=== PATIENT | female | born 1950 | race Caucasian/White ===

== ENCOUNTER 2019-01-14 05:05 | Day surgery (SDC) | payer MEDICARE, BC ==
[2019-01-11 13:29] LABS: BASOPHILS % (AUTO) 0.3 % (0-1); EOSINOPHILS # (AUTO) 0.1 X10'3 (0-0.9); EOSINOPHILS % (AUTO) 1.2 % (0-6); HEMATOCRIT 38.6 % (35.0-45.0); HEMOGLOBIN 12.6 g/dl (12.0-16.0); LYMPHOCYTES # (AUTO) 1.7 X10'3 (1.1-4.8); LYMPHOCYTES % (AUTO) 20.7 % (21-51); MEAN CORPUSCULAR HEMOGLOBIN 28.6 PG (27.0-31.0); MEAN CORPUSCULAR HGB CONC 32.7 g/dL (33.0-36.5); MEAN CORPUSCULAR VOLUME 87.5 FL (78-98); MEAN PLATELET VOLUME 7.9 FL (7.4-10.4); MONOCYTES # (AUTO) 0.5 X10'3 (0-0.9); NEUTROPHILS # (AUTO) 6.1 X10'3 (1.8-7.7); NEUTROPHILS % (AUTO) 71.8 % (42-75); PLATELET COUNT 289 X10'3 (140-440); RED BLOOD COUNT 4.41 X10'6 (4.20-5.60); RED CELL DISTRIBUTION WIDTH 12.4 % (11.5-14.5); WHITE BLOOD COUNT 8.4 X10'3 (4.5-11.0)
[2019-01-11 13:41] LABS: ALBUMIN 3.9 G/DL (3.4-5.0); ANION GAP 9 (8-16); BLOOD UREA NITROGEN 17 MG/DL (7-18); BUN/CREATININE RATIO 18.9 (6.6-38.0); CHLORIDE 103 MMOL/L (99-107); GLUCOSE 92 MG/DL (70-104); SODIUM 141 MMOL/L (135-145); TOTAL CARBON DIOXIDE 28.9 MMOL/L (24-32); eGFR 62 ML/MIN
[2019-01-11 13:43] LABS: INR 1.1 INR; PARTIAL THROMBOPLASTIN TIME 30 SECONDS (22-32); PROTHROMBIN TIME 10.8 SECONDS (9.0-12.0)
[~2019-01-14] VITALS: Ht 156.2 cm; Wt 74.6 kg
[2019-01-14] VITALS (11 sets, daily range): BP systolic 80–99; BP diastolic 46–66
[2019-01-14] MEDS ORDERED: FURO-150 PO (05:21)
[2019-01-14] MEDS ORDERED: SPIR25TA PO (05:21)
[2019-01-14] MEDS ORDERED: APIX5TAB3 PO (05:21)
[2019-01-14] MEDS ORDERED: VALS40TA2 PO (05:21)
[2019-01-14] MEDS ORDERED: CARV-49 PO (05:21)
[2019-01-14] MEDS ORDERED: diphenhydrAMINE 25mg capsule PO PRN (05:35)
[2019-01-14] MEDS ORDERED: normal saline 1000ml 1,000 ML IV SCH (05:35)
[2019-01-14] MEDS ORDERED: LORazepam 0.5 MG tablet PO PRN (05:35)
[2019-01-14] MEDS ORDERED: LIDOcaine 1% (10mg/ml)w/preservative injection 20ml MDV ONE (06:13)
[2019-01-14] MEDS ORDERED: iohexol 350MG/ML 100ml bottle IV ONE (06:13)
[2019-01-14] MEDS ORDERED: midazolam 2 mg/2 ml injection ONE (06:24)
[2019-01-14] MEDS ORDERED: fentaNYL/PF 50MCG/1 ML 2ML syringe ONE (06:32)
[2019-01-14] MEDS ORDERED: proCHLORperazine 10 MG/2 ml inj IV PRN (07:30)
[2019-01-14] MEDS ORDERED: OXAZEpam 15mg capsule PO PRN (07:30)
[2019-01-14] MEDS ORDERED: ondansetron/PF 4mg/2ml inj IV PRN (07:30)
[2019-01-14] MEDS ORDERED: HYDROcodone/acetaminophen 10/325mg tab PO PRN (07:30)
[2019-01-14] MEDS ORDERED: HYDROcodone/acetaminophen 5mg/325mg tablet PO PRN (07:30)
== END 2019-01-14 10:03 | disposition home or self-care (01) ==
LOC: SSTAY O 05:05
PROVIDERS: ATTEND Internal Medicine Interventional Cardiology
DX: I25.119 Atherosclerotic heart disease of native coronary artery with unspecified angina pectoris (principal); I50.9 Heart failure, unspecified; I48.91 Unspecified atrial fibrillation; I42.9 Cardiomyopathy, unspecified; I11.0 Hypertensive heart disease with heart failure; Z79.899 Other long term (current) drug therapy; Z87.891 Personal history of nicotine dependence
CPT/HCPCS: 36415; 80048; 85025; 85610; 85730; 93005; 93458; 99152; 99153; A6257; J1644; J2001; J2250; J3010; J7030; Q0163; Q9967; A4620; C1769

== ENCOUNTER 2019-08-06 10:13 | Emergency (ER) | payer MEDICARE, BC ==
[~2019-08-06] VITALS: Ht 154.9 cm; Wt 72.7 kg
[~2019-08-06 10:13] MED LIST: APIX5TAB3 PO; CARV-49 PO; FURO-150 PO; SPIR25TA PO; VALS40TA2 PO
[2019-08-06] MEDS ORDERED: ipratropium/albuterol 3ml nebule NEB ONE (10:25)
[2019-08-06] MEDS ORDERED: normal saline 1000ML IV soln IV ONE (10:25)
[2019-08-06 10:59] LABS: BASOPHILS % (AUTO) 0.1 % (0-1); EOSINOPHILS # (AUTO) 0.1 X10'3 (0-0.9); EOSINOPHILS % (AUTO) 0.4 % (0-6); HEMATOCRIT 38.7 % (35.0-45.0); HEMOGLOBIN 12.7 g/dl (12.0-16.0); LYMPHOCYTES # (AUTO) 0.7 X10'3 (1.1-4.8); MEAN CORPUSCULAR HEMOGLOBIN 28.8 PG (27.0-31.0); MEAN CORPUSCULAR HGB CONC 32.9 g/dL (33.0-36.5); MEAN CORPUSCULAR VOLUME 87.6 FL (78-98); MEAN PLATELET VOLUME 7.8 FL (7.4-10.4); MONOCYTES # (AUTO) 0.7 X10'3 (0-0.9); MONOCYTES % (AUTO) 4.7 % (2-12); NEUTROPHILS # (AUTO) 13.1 X10'3 (1.8-7.7); NEUTROPHILS % (AUTO) 89.8 % (42-75); PLATELET COUNT 251 X10'3 (140-440); RED BLOOD COUNT 4.42 X10'6 (4.20-5.60); RED CELL DISTRIBUTION WIDTH 13.2 % (11.5-14.5); WHITE BLOOD COUNT 14.6 X10'3 (4.5-11.0)
[2019-08-06 11:15] LABS: ALANINE AMINOTRANSFERASE 22 U/L (12-78); ALBUMIN 3.9 G/DL (3.4-5.0); ALKALINE PHOSPHATASE 114 IU/L (46-116); ANION GAP 7 (8-16); ASPARTATE AMINO TRANSFERASE 15 U/L (10-37); BILIRUBIN,TOTAL 0.6 MG/DL (0.1-1.0); BLOOD UREA NITROGEN 9 MG/DL (7-18); BUN/CREATININE RATIO 9.3 (6.6-38.0); CALCIUM 9.3 MG/DL (8.5-10.1); CHLORIDE 107 MMOL/L (99-107); CREATININE 0.97 MG/DL (0.40-0.90); GLUCOSE 118 MG/DL (70-104); POTASSIUM 3.6 MMOL/L (3.5-5.1); SODIUM 141 MMOL/L (135-145); TOTAL CARBON DIOXIDE 26.6 MMOL/L (24-32); TOTAL PROTEIN 7.7 G/DL (6.4-8.2); eGFR 57 ML/MIN
[2019-08-06] MEDS ORDERED: CefTRIAXone 2gm/D5W 50ml 50 ML IV ONE (11:25)
[2019-08-06] MEDS ORDERED: CEPH250T PO (11:31)
[2019-08-06] MEDS ORDERED: DOXY100C43 PO (11:31)
[2019-08-06] MEDS ORDERED: ALBU6.7H9 INH (11:31)
[2019-08-06] MEDS ORDERED: PRED20TA PO (11:31)
[2019-08-06] MEDS ORDERED: GUAI118S13 PO (11:31)
[2019-08-06 12:25] VITALS: BP 101/45
== END 2019-08-06 12:28 | disposition home or self-care (01) ==
LOC: ER 10:15 → CANBEDREQ 11:49 → ER 12:28
DX: J18.9 Pneumonia, unspecified organism (principal); R00.0 Tachycardia, unspecified; Z79.2 Long term (current) use of antibiotics; Z79.899 Other long term (current) drug therapy
CPT/HCPCS: 36415; 71045; 80053; 83605; 84145; 85025; 87040; 93005; 94640; 94760; 96365; 99284; J0696; J7030; J7040

== ENCOUNTER 2021-03-25 06:37 | Day surgery (SDC) | payer MEDICARE, BC ==
[2021-03-18 12:51] LABS: BASOPHILS % (AUTO) 0.3 % (0-1); EOSINOPHILS # (AUTO) 0.2 X10'3 (0-0.9); EOSINOPHILS % (AUTO) 2.8 % (0-6); LYMPHOCYTES # (AUTO) 1.3 X10'3 (1.1-4.8); LYMPHOCYTES % (AUTO) 18.8 % (21-51); MEAN CORPUSCULAR HEMOGLOBIN 31.1 PG (27.0-31.0); MEAN CORPUSCULAR VOLUME 91.4 FL (78-98); MEAN PLATELET VOLUME 8.3 FL (7.4-10.4); MONOCYTES # (AUTO) 0.5 X10'3 (0-0.9); MONOCYTES % (AUTO) 6.9 % (2-12); NEUTROPHILS % (AUTO) 71.2 % (42-75); PRE OP HEMATOCRIT 44.2 % (35.0-45.0); PRE OP PLATELET COUNT 226 X10'3 (140-440); RED BLOOD COUNT 4.83 X10'6 (4.20-5.60); RED CELL DISTRIBUTION WIDTH 13.2 % (11.5-14.5)
[2021-03-18 13:16] LABS: ALBUMIN 4.1 G/DL (3.4-5.0); ALKALINE PHOSPHATASE 192 IU/L (46-116); BLOOD UREA NITROGEN 25 MG/DL (7-18); BUN/CREATININE RATIO 21.6 (6.6-38.0); CALCIUM 10.1 MG/DL (8.5-10.1); CHLORIDE 101 MMOL/L (99-107); CREATININE 1.16 MG/DL (0.40-0.90); PRE OP ALT 36 U/L (30-65); PRE OP ANION GAP 10 (8-16); PRE OP AST 30 U/L (10-37); PRE OP BILIRUB, TOTAL 0.9 MG/DL (0.0-1.0); PRE OP GLUCOSE 94 MG/DL (70-104); PRE OP INR 1.2 INR; PRE OP POTASSIUM 4.1 MMOL/L (3.4-5.1); PRE OP PROTIME 11.9 SECONDS (9.0-12.0); PRE OP SODIUM 139 MMOL/L (135-145); TOTAL CARBON DIOXIDE 28.5 MMOL/L (24-32); TOTAL PROTEIN 8.3 G/DL (6.4-8.2); eGFR 46 ML/MIN
[~2021-03-25] VITALS: Ht 157.5 cm; Wt 62.1 kg
[2021-03-25] VITALS (32 sets, daily range): BP systolic 83–109; BP diastolic 47–75
[~2021-03-25 06:37] MED LIST changes: +CHOL200074 PO; +DOCUMENT DATE & TIME OF BETA-BLOCKER PO ONE; +VANCOMYCIN INJ 1000 MG in NORMAL SALINE 250ml IV.SOLN IV ONE; +VITAMIN B12 PO; +acetaminophen 325mg tablet PO ONE; +cefazolin/dext.iso 2gm/100ml IV ONE; +celeCOXIB 100mg capsule PO ONE; +famotidine 20mg tablet PO ONE; +gabapentin 300mg capsule PO ONE; +metoclopramide 5 mg/ml inj IV ONE; +oxyCODONE SR 10mg (sust. release) tab -2 tabs (20mg) PO ONE; +ringers solution, lacted 1,000 ML IV SCH; +tranexamic acid 1gm/0.7% sal. 100 ML IV ONE
[2021-03-25] MEDS ORDERED: furosemide 20MG tablet PO PRN (06:50)
[2021-03-25] MEDS ORDERED: ondansetron/PF 4mg/2ml inj IV PRN ×2 (06:55→08:25)
[2021-03-25] MEDS ORDERED: magnesium hydroxide 30ml (MOM) UD suspension PO PRN (06:55)
[2021-03-25] MEDS ORDERED: HYDROmorphone inj. 0.5 MG/0.5 ML DISP.SYRIN IV PRN (06:55)
[2021-03-25] MEDS ORDERED: acetaminophen 325mg tablet PO PRN (06:55)
[2021-03-25] MEDS ORDERED: HYDROmorphone 1 mg/ml syringe IV PRN (06:55)
[2021-03-25] MEDS ORDERED: bisacodyl 10mg suppository rectal RC PRN (06:55)
[2021-03-25] MEDS ORDERED: HYDROcodone/acetaminophen 10/325mg tab PO PRN ×2 (06:55)
[2021-03-25] MEDS ORDERED: diphenhydrAMINE 25mg capsule PO PRN ×2 (06:55)
[2021-03-25] MEDS: apixaban 5mg tablet PO SCH ×2 (08:00→21:16)
[2021-03-25] MEDS ORDERED: ceFAZolin/D5W- 1GM premix 50 ML IV SCH (08:00)
[2021-03-25] MEDS: gabapentin 300mg capsule PO SCH ×3 (08:00→21:17)
[2021-03-25] MEDS: carvedilol 6.25mg tablet PO SCH ×2 (08:00→21:00)
[2021-03-25] MEDS: losartan 25mg tablet PO SCH (08:00)
[2021-03-25] MEDS ORDERED: vancomycin/NS 1 GM ADD-VANTAGE 250 ML IV SCH ×2 (08:00→20:00)
[2021-03-25] MEDS: spironolactone 25 MG tablet PO SCH (08:00)
[2021-03-25] MEDS ORDERED: acetaminophen 1,000mg/100ml IV 100 ML IV PRN (08:25)
[2021-03-25] MEDS ORDERED: meperidine/PF 25mg/ml syringe IV PRN ×3 (08:25)
[2021-03-25] MEDS ORDERED: proCHLORperazine 10 MG/2 ml inj IV PRN ×2 (08:25→19:05)
[2021-03-25] MEDS ORDERED: ringers solution, lacted 1,000 ML IV SCH (08:25)
[2021-03-25] MEDS ORDERED: morphine 2 MG/ML inj. syringe IV PRN (08:25)
[2021-03-25] MEDS ORDERED: morphine 4 MG/ML inj SYRINge IV PRN (08:25)
[2021-03-25] MEDS ORDERED: hydrALAZINE 20mg/ml inj. IV PRN (08:25)
[2021-03-25] MEDS ORDERED: labetalol 20mg/4ml (5mg/ml) syringe IV PRN (08:25)
[2021-03-25] MEDS ORDERED: midazolam 1 mg/ML 2ml injection ONE (09:02)
[2021-03-25] MEDS ORDERED: fentaNYL/PF 50MCG/1 ML 2ML syringe ONE (09:04)
[2021-03-25] MEDS ORDERED: epiNEPHrine 1 mg/ml inj ONE (09:14)
[2021-03-25] MEDS ORDERED: ROPIVAcaine 0.5% (5mg/ml) 30ml vial ONE (09:14)
[2021-03-25] MEDS ORDERED: cloNIDine hcl/PF 100mcg/ml inj ONE (09:14)
[2021-03-25] MEDS ORDERED: propofol inj 20 ML IV ONE (09:19)
[2021-03-25] MEDS ORDERED: 0.9 % SODIUM CHLORIDE 10 ML VIAL ONE ×2 (09:19)
[2021-03-25] MEDS ORDERED: phenylephrine 10mg/ml inj. ONE ×2 (09:19→09:28)
[2021-03-25] MEDS ORDERED: ePHEDrine 50MG/ML INJ. ONE ×2 (09:19→09:37)
[2021-03-25] MEDS ORDERED: vancomycin 1,000mg inj ONE ×2 (09:27→09:28)
--- NOTE | 2021-03-25 10:00 | NUR ---
Received from OR via BED, accompanied by Anesthesiologst DR GONZALEZ and report given by Anesthesiologist. PT DROWSY, DENIES PAIN, PT W/SAB UNABLE TO MOVE BILAT LE'S. RIGHT HIP W/SALBADOR DRSG/DRAIN CDI, GREEN LIGHT ILLUMINATION, LEG BRACE PLACED ON, POWDER PACK, X-RAY OBTAINED. PT ON PHENYLEPHRINE GTT, TITRATING TO OFF TOLERATED. Addendum: 03/25/21 at 1205 by Nat Cosby RN Amended: Links added.
[2021-03-25] MEDS: phenylephrine inj 50 MG in normal saline 250ml IV soln 245 ML IV SCH ×2 (10:28→14:49)
--- NOTE | 2021-03-25 12:28 | NUR ---
Patient in room . I have received report from shaista ZELAYA and had the opportunity to ask questions and awaiting to receive patient to floor
--- NOTE | 2021-03-25 12:50 | NUR ---
Report called to receiving nurse. Transferred via BED, 1 BAG OF Belongings SENT W/PT TO ROOM 4023B, STUDENT NURSE AT BEDSIDE TO RECIEVE PT. Special Issues communicated to receiving nurse. YES. Addendum: 03/25/21 at 1317 by Nat Cosby RN Amended: Links added.
[2021-03-25] MEDS: ascorbic acid 500mg tablet PO SCH ×2 (15:15→21:16)
[2021-03-25] MEDS: multivitamins, therapeutics tablet PO SCH (15:16)
[2021-03-25] MEDS: ceFAZolin/D5W- 1GM premix 50 ML IV SCH (15:17)
[2021-03-25] MEDS: potassium cl 20mEq in 1/2 NS 1,000 ML IV SCH ×2 (15:18→18:43)
[2021-03-25] MEDS ORDERED: tranexamic acid 1gm/0.7% sal. 100 ML IV ONE (16:30)
--- NOTE | 2021-03-25 17:31 | NUR ---
patient is alittle hypotensive 90/50 but states this is her norm. Post op vitals complete. patient up to commode but unable to void, bladder scanning at this time. Knee immobolizer in place jocelyn dressing in place. dressing CDI. will continue to monitor
--- NOTE | 2021-03-25 18:56 | NUR ---
patient bladder scanned 15mls observed. patient encouraged to drink more fluid. . Report given to Janis ZELAYA
--- NOTE | 2021-03-25 19:07 | NUR ---
notified dr. Beltran of pt emesis. order for compazine obtained. notified unable to void. order received for hurt if residual over 600.
[2021-03-25] MEDS ORDERED: sennosides 8.6mg tablet PO SCH (21:00)
--- NOTE | 2021-03-25 22:00 | NUR ---
up to BSC to void. noted 75ml. scanned bladder - 20ml left. not distended. will continue to monitor.
[2021-03-26] VITALS (7 sets, daily range): BP systolic 76–104; BP diastolic 50–72
--- NOTE | 2021-03-26 00:36 | NUR ---
noted pt continues to have borderline low BP. held coreg since pt receiving anti-emetics and narcotics.
[2021-03-26] MEDS: ceFAZolin/D5W- 1GM premix 50 ML IV SCH (00:47)
[2021-03-26] MEDS: potassium cl 20mEq in 1/2 NS 1,000 ML IV SCH ×2 (00:48→06:55)
--- NOTE | 2021-03-26 06:10 | NUR ---
Patient in room ORTHO 4023. I have received report from NATHALIE Bruce and had the opportunity to ask questions and assume patient care.
--- NOTE | 2021-03-26 06:23 | NUR ---
reported to days. told Dr. Beltran about decreased BP. ok to work with PT. day Rn will monitor bp after norco and PT.
[2021-03-26] MEDS: carvedilol 6.25mg tablet PO SCH ×2 (08:00→09:43)
[2021-03-26] MEDS: spironolactone 25 MG tablet PO SCH ×2 (08:00→09:43)
[2021-03-26] MEDS: losartan 25mg tablet PO SCH ×2 (08:00→09:44)
[2021-03-26 08:21] LABS: BASOPHILS % (AUTO) 0.2 % (0-1); EOSINOPHILS % (AUTO) 0.6 % (0-6); HEMATOCRIT 36.8 % (35.0-45.0); HEMOGLOBIN 12.3 g/dl (12.0-16.0); LYMPHOCYTES # (AUTO) 0.8 X10'3 (1.1-4.8); MEAN CORPUSCULAR HEMOGLOBIN 30.7 PG (27.0-31.0); MEAN CORPUSCULAR HGB CONC 33.3 g/dL (33.0-36.5); MEAN CORPUSCULAR VOLUME 92.2 FL (78-98); MEAN PLATELET VOLUME 8.8 FL (7.4-10.4); MONOCYTES # (AUTO) 0.8 X10'3 (0-0.9); MONOCYTES % (AUTO) 10.2 % (2-12); NEUTROPHILS # (AUTO) 5.9 X10'3 (1.8-7.7); PLATELET COUNT 199 X10'3 (140-440); RED CELL DISTRIBUTION WIDTH 13.1 % (11.5-14.5); WHITE BLOOD COUNT 7.5 X10'3 (4.5-11.0)
[2021-03-26 08:44] LABS: ANION GAP 11 (8-16); CHLORIDE 100 MMOL/L (99-107); POTASSIUM 5.9 MMOL/L (3.5-5.1); SODIUM 132 MMOL/L (135-145); TOTAL CARBON DIOXIDE 21.3 MMOL/L (24-32)
[2021-03-26] MEDS: multivitamins, therapeutics tablet PO SCH (09:41)
[2021-03-26] MEDS: gabapentin 300mg capsule PO SCH ×2 (09:41→13:05)
[2021-03-26] MEDS: ascorbic acid 500mg tablet PO SCH (09:41)
[2021-03-26] MEDS: apixaban 5mg tablet PO SCH (09:42)
[2021-03-26] MEDS ORDERED: normal saline 1000ml 1,000 ML IV ONE (10:05)
--- NOTE | 2021-03-26 14:50 | NUR ---
DC inst provided to pt & pt's . IV DC'd, tip intact. All belongings sent w/pt. WC to vehicle.
[2021-03-26] MEDS ORDERED: celeCOXIB 100mg capsule PO SCH (20:00)
[2021-03-29] MEDS ORDERED: CYAN500T71 PO (07:49)
== END 2021-03-26 15:00 | disposition home or self-care (01) ==
LOC: PAS 06:37 → ORTHO 4S 13:29 → PAS 03-26 15:00
PROVIDERS: ATTEND Orthopaedic Surgery
DX: M16.11 Unilateral primary osteoarthritis, right hip (principal); I48.91 Unspecified atrial fibrillation; I50.9 Heart failure, unspecified; I95.9 Hypotension, unspecified; E66.9 Obesity, unspecified; Z68.25 Body mass index [BMI] 25.0-25.9, adult; M17.11 Unilateral primary osteoarthritis, right knee; Z85.3 Personal history of malignant neoplasm of breast; Z88.0 Allergy status to penicillin; Z20.822 Contact with and (suspected) exposure to COVID-19; Z79.899 Other long term (current) drug therapy; Z79.01 Long term (current) use of anticoagulants; Z87.891 Personal history of nicotine dependence; Z72.89 Other problems related to lifestyle; Z98.890 Other specified postprocedural states; Z95.810 Presence of automatic (implantable) cardiac defibrillator
CPT/HCPCS: 27130; 36415; 72170; 80051; 80053; 82948; 85025; 85610; 85730; 86885; 86900; 86901; 87081; 97110; 97116; 97161; 97530; C1776; J0171; J0690; J0735; J0780; J2250; J2370; J2405; J2704; J2765; J3010; J3370; J7030; J7050; J7120; U0003; U0005; A7000; G0378; J2795; J3480

== ENCOUNTER 2021-09-07 10:13 | Day surgery (SDC) | payer MEDICARE, BC ==
[2021-09-07] VITALS (13 sets, daily range): BP systolic 79–103; BP diastolic 25–60
[~2021-09-07] VITALS: Ht 157.5 cm; Wt 67.1 kg
[~2021-09-07 10:13] MED LIST changes: -CARV-49 PO; +CARV3.12 PO; +CYAN500T71 PO; -DOCUMENT DATE & TIME OF BETA-BLOCKER PO ONE; -SPIR25TA PO; -VALS40TA2 PO; -VANCOMYCIN INJ 1000 MG in NORMAL SALINE 250ml IV.SOLN IV ONE; -VITAMIN B12 PO; -acetaminophen 325mg tablet PO ONE; -cefazolin/dext.iso 2gm/100ml IV ONE; -celeCOXIB 100mg capsule PO ONE; -famotidine 20mg tablet PO ONE; -gabapentin 300mg capsule PO ONE; -metoclopramide 5 mg/ml inj IV ONE; -oxyCODONE SR 10mg (sust. release) tab -2 tabs (20mg) PO ONE; -ringers solution, lacted 1,000 ML IV SCH; -tranexamic acid 1gm/0.7% sal. 100 ML IV ONE
[2021-09-07] MEDS ORDERED: MIDAZolam 1mg/ml 10ml vial IV ONE ×2 (10:45→10:50)
[2021-09-07] MEDS ORDERED: fentaNYL/PF 50MCG/1 ML 2ML syringe IV ONE ×2 (10:45→10:50)
[2021-09-07] MEDS ORDERED: normal saline 1000ml 1,000 ML IV SCH ×2 (10:45→10:50)
[2021-09-07] MEDS ORDERED: VALS40TA2 PO (10:54)
[2021-09-07] MEDS ORDERED: SPIR25TA5 PO (10:56)
[2021-09-07] MEDS ORDERED: FURO-150 PO (10:56)
[2021-09-07] MEDS ORDERED: CARV3.12 PO (10:56)
[2021-09-07 11:41] LABS: ALBUMIN 4.3 G/DL (3.4-5.0); ANION GAP 13 (8-16); BLOOD UREA NITROGEN 53 MG/DL (7-18); BUN/CREATININE RATIO 37.6 (6.6-38.0); CALCIUM 10.4 MG/DL (8.5-10.1); CHLORIDE 106 MMOL/L (99-107); CREATININE 1.41 MG/DL (0.40-0.90); GLUCOSE 105 MG/DL (70-104); POTASSIUM 4.4 MMOL/L (3.5-5.1); SODIUM 144 MMOL/L (135-145); TOTAL CARBON DIOXIDE 24.9 MMOL/L (24-32); eGFR 37 ML/MIN
== END 2021-09-07 14:45 | disposition home or self-care (01) ==
LOC: SSTAY O 10:13
PROVIDERS: ATTEND Internal Medicine Interventional Cardiology
DX: I48.91 Unspecified atrial fibrillation (principal); I10 Essential (primary) hypertension; N18.9 Chronic kidney disease, unspecified; I42.8 Other cardiomyopathies; I13.0 Hypertensive heart and chronic kidney disease with heart failure and stage 1 through stage 4 chronic kidney disease, or unspecified chronic kidney disease; I50.22 Chronic systolic (congestive) heart failure; Z79.899 Other long term (current) drug therapy; Z88.0 Allergy status to penicillin; Z88.1 Allergy status to other antibiotic agents; Z95.810 Presence of automatic (implantable) cardiac defibrillator; Z98.890 Other specified postprocedural states
CPT/HCPCS: 36415; 80048; 85610; 92960; 93005; 94799; J2250; J3010; J7030

== ENCOUNTER 2022-03-10 14:45 | Inpatient (IN) | payer MEDICARE, BC ==
[~2022-03-10] VITALS: Ht 157.5 cm; Wt 64.5 kg
[~2022-03-10 14:45] MED LIST changes: +SPIR25TA5 PO; +VALS40TA2 PO
[2022-03-10 15:16] LABS: BASOPHILS % (AUTO) 0.2 % (0-1); EOSINOPHILS % (AUTO) 0.4 % (0-6); HEMATOCRIT 40.3 % (35.0-45.0); HEMOGLOBIN 13.3 g/dl (12.0-16.0); LYMPHOCYTES # (AUTO) 1.1 X10'3 (1.1-4.8); LYMPHOCYTES % (AUTO) 16.2 % (21-51); MEAN CORPUSCULAR HEMOGLOBIN 30.8 PG (27.0-31.0); MEAN CORPUSCULAR HGB CONC 33.1 g/dL (33.0-36.5); MEAN PLATELET VOLUME 8.8 FL (7.4-10.4); MONOCYTES # (AUTO) 0.7 X10'3 (0-0.9); MONOCYTES % (AUTO) 10.4 % (2-12); NEUTROPHILS # (AUTO) 4.7 X10'3 (1.8-7.7); NEUTROPHILS % (AUTO) 72.8 % (42-75); PLATELET COUNT 177 X10'3 (140-440); RED BLOOD COUNT 4.34 X10'6 (4.20-5.60); RED CELL DISTRIBUTION WIDTH 15.7 % (11.5-14.5); WHITE BLOOD COUNT 6.5 X10'3 (4.5-11.0)
[2022-03-10 15:30] LABS: ALANINE AMINOTRANSFERASE 21 U/L (12-78); ALBUMIN 4.1 G/DL (3.4-5.0); ALBUMIN/GLOBULIN RATIO 1.4 (1.1-1.5); ALKALINE PHOSPHATASE 127 IU/L (46-116); ANION GAP 15 (8-16); ASPARTATE AMINO TRANSFERASE 27 U/L (10-37); BILIRUBIN,TOTAL 2.2 MG/DL (0.1-1.0); BLOOD UREA NITROGEN 41 MG/DL (7-18); BUN/CREATININE RATIO 18.2 (6.6-38.0); CALCIUM 9.8 MG/DL (8.5-10.1); CHLORIDE 96 MMOL/L (99-107); CREATININE 2.25 MG/DL (0.40-0.90); GLUCOSE 107 MG/DL (70-104); POTASSIUM 3.8 MMOL/L (3.5-5.1); SODIUM 133 MMOL/L (135-145); TOTAL CARBON DIOXIDE 21.9 MMOL/L (24-32); TOTAL PROTEIN 7.1 G/DL (6.4-8.2); eGFR 21 ML/MIN
[2022-03-10 18:51] LABS: APTT 35 SECONDS (22-32)
[2022-03-10 19:07] LABS: CLARITY,URINE CLEAR (Clear); COLOR,URINE YELLOW (Yellow); GLUCOSE, URINE NEGATIVE (Neg); KETONES,URINE NEGATIVE (Neg); LEUKOCYTE ESTERASE ,URINE NEGATIVE (Neg); NITRITES, URINE NEGATIVE (Neg); OCCULT BLOOD,URINE NEGATIVE (Neg); PROTEIN,URINE NEGATIVE (Neg); UROBILINOGEN,URINE 0.2 E.U/dL (0.2-1.0)
[2022-03-10 19:13] LABS: UA COLLECTION TYPE CLN CATCH MIDSTREAM
[2022-03-10] MEDS ORDERED: ASCO-336 PO (22:33)
[2022-03-11] MEDS ORDERED: potassium CL 10mEq/100ml bag 100 ML IV PRN (00:20)
[2022-03-11] MEDS ORDERED: PERFLUTREN PROTEIN-A MICROSPHR (Optison) 0.22 MG/ML 3ML VIAL IV PRN (00:20)
[2022-03-11] MEDS ORDERED: acetaminophen 325mg tablet PO PRN ×2 (00:20)
[2022-03-11] MEDS ORDERED: magnesium Cl slow-release 64mg tablet PO PRN (00:20)
[2022-03-11] MEDS ORDERED: magnesium 4gm in 100ml NS 100 ML IV PRN (00:20)
[2022-03-11] MEDS ORDERED: mag hydrox/Alum hydrox/simeth 30ml oral suspension PO PRN (00:20)
[2022-03-11] MEDS ORDERED: potassium Cl 20 mEq SR tablet PO PRN ×2 (00:20)
[2022-03-11] MEDS ORDERED: magnesium hydroxide 30ml (MOM) UD suspension PO PRN (00:20)
[2022-03-11] MEDS ORDERED: magnesium 2GM in 50ml NS 50 ML IV PRN (00:20)
[2022-03-11] MEDS ORDERED: ondansetron/PF 4mg/2ml inj IV PRN (00:20)
[2022-03-11] MEDS ORDERED: furosemide 10 MG/1 ML 10ml inj IV ONE (00:25)
[2022-03-11 02:30] LABS: MAGNESIUM 2.1 MG/DL (1.5-2.4); POTASSIUM 3.7 MMOL/L (3.5-5.1)
[2022-03-11] MEDS: K and/or MAG REPLACEMENT MC SCH ×2 (08:00→20:00)
[2022-03-11] MEDS: furosemide 10 MG/1 ML 10ml inj IV SCH ×2 (08:00→20:00)
[2022-03-11] MEDS: carVEDilol 3.125mg tablet PO SCH ×2 (08:00→20:00)
[2022-03-11] MEDS ORDERED: spironolactone 25 MG tablet PO SCH (08:00)
[2022-03-11] MEDS: apixaban 5mg tablet PO SCH ×2 (08:41→20:39)
[2022-03-11] MEDS: docusate sod 100mg capsule PO SCH ×2 (08:41→20:00)
[2022-03-11 10:08] LABS: BASOPHILS % (AUTO) 0.3 % (0-1); EOSINOPHILS % (AUTO) 0.6 % (0-6); HEMOGLOBIN 12.7 g/dl (12.0-16.0); LYMPHOCYTES # (AUTO) 0.7 X10'3 (1.1-4.8); LYMPHOCYTES % (AUTO) 13.5 % (21-51); MEAN CORPUSCULAR HEMOGLOBIN 30.7 PG (27.0-31.0); MEAN CORPUSCULAR HGB CONC 33.5 g/dL (33.0-36.5); MEAN CORPUSCULAR VOLUME 91.6 FL (78-98); MEAN PLATELET VOLUME 8.9 FL (7.4-10.4); MONOCYTES # (AUTO) 0.5 X10'3 (0-0.9); MONOCYTES % (AUTO) 10.2 % (2-12); NEUTROPHILS # (AUTO) 3.7 X10'3 (1.8-7.7); NEUTROPHILS % (AUTO) 75.4 % (42-75); PLATELET COUNT 160 X10'3 (140-440); RED BLOOD COUNT 4.15 X10'6 (4.20-5.60); RED CELL DISTRIBUTION WIDTH 15.4 % (11.5-14.5); WHITE BLOOD COUNT 4.9 X10'3 (4.5-11.0)
[2022-03-11 10:18] LABS: ALANINE AMINOTRANSFERASE 24 U/L (12-78); ALBUMIN 3.9 G/DL (3.4-5.0); ALBUMIN/GLOBULIN RATIO 1.6 (1.1-1.5); ALKALINE PHOSPHATASE 110 IU/L (46-116); ANION GAP 16 (8-16); ASPARTATE AMINO TRANSFERASE 33 U/L (10-37); BILIRUBIN,TOTAL 2.7 MG/DL (0.1-1.0); BLOOD UREA NITROGEN 44 MG/DL (7-18); BUN/CREATININE RATIO 20.3 (6.6-38.0); CALCIUM 9.9 MG/DL (8.5-10.1); CHLORIDE 96 MMOL/L (99-107); CREATININE 2.17 MG/DL (0.40-0.90); GLUCOSE 100 MG/DL (70-104); POTASSIUM 3.4 MMOL/L (3.5-5.1); SODIUM 134 MMOL/L (135-145); TOTAL PROTEIN 6.4 G/DL (6.4-8.2); eGFR 22 ML/MIN
[2022-03-11 17:30] VITALS: BP 99/63
--- NOTE | 2022-03-11 17:35 | NUR ---
PAGER ID: [phone] MESSAGE: Krysta Luong just had a 12 lead ekg and it showed she was/is in a flutter. conservation technician said to look at v1, the ekg is in the chart. Thank Dr. Domitila Vanegas RN ext [phone] Dr. Ramesh called back and is aware.
[2022-03-11] MEDS ORDERED: HYDROcodone/acetaminophen 5mg/325mg tablet PO ONE (22:45)
[2022-03-11] MEDS ORDERED: Melatonin 3mg tablet PO ONE (22:45)
[2022-03-11] MEDS ORDERED: Melatonin 3mg tablet PO SCH (22:45)
[2022-03-12 06:32] LABS: BASOPHILS % (AUTO) 0.3 % (0-1); EOSINOPHILS % (AUTO) 0.3 % (0-6); HEMATOCRIT 37.7 % (35.0-45.0); HEMOGLOBIN 12.6 g/dl (12.0-16.0); LYMPHOCYTES # (AUTO) 0.7 X10'3 (1.1-4.8); LYMPHOCYTES % (AUTO) 12.7 % (21-51); MEAN CORPUSCULAR HEMOGLOBIN 30.8 PG (27.0-31.0); MEAN CORPUSCULAR HGB CONC 33.4 g/dL (33.0-36.5); MEAN CORPUSCULAR VOLUME 92.1 FL (78-98); MEAN PLATELET VOLUME 9.1 FL (7.4-10.4); MONOCYTES # (AUTO) 0.6 X10'3 (0-0.9); MONOCYTES % (AUTO) 10.8 % (2-12); NEUTROPHILS # (AUTO) 4.4 X10'3 (1.8-7.7); NEUTROPHILS % (AUTO) 75.9 % (42-75); PLATELET COUNT 172 X10'3 (140-440); RED CELL DISTRIBUTION WIDTH 14.8 % (11.5-14.5); WHITE BLOOD COUNT 5.8 X10'3 (4.5-11.0)
[2022-03-12 06:39] LABS: ALANINE AMINOTRANSFERASE 44 U/L (12-78); ALBUMIN 3.9 G/DL (3.4-5.0); ALBUMIN/GLOBULIN RATIO 1.4 (1.1-1.5); ALKALINE PHOSPHATASE 119 IU/L (46-116); ANION GAP 12 (8-16); ASPARTATE AMINO TRANSFERASE 51 U/L (10-37); BILIRUBIN,TOTAL 2.8 MG/DL (0.1-1.0); BLOOD UREA NITROGEN 54 MG/DL (7-18); BUN/CREATININE RATIO 22.2 (6.6-38.0); CALCIUM 10.2 MG/DL (8.5-10.1); CHLORIDE 98 MMOL/L (99-107); CREATININE 2.43 MG/DL (0.40-0.90); GLUCOSE 119 MG/DL (70-104); SODIUM 132 MMOL/L (135-145); TOTAL CARBON DIOXIDE 21.6 MMOL/L (24-32); TOTAL PROTEIN 6.6 G/DL (6.4-8.2); eGFR 20 ML/MIN
[2022-03-12 07:27] VITALS: BP 104/67
[2022-03-12] MEDS: K and/or MAG REPLACEMENT MC SCH ×2 (08:00→20:00)
[2022-03-12] MEDS: furosemide 10 MG/1 ML 10ml inj IV SCH ×2 (08:11→19:38)
[2022-03-12] MEDS: docusate sod 100mg capsule PO SCH ×2 (08:12→19:36)
[2022-03-12] MEDS: carVEDilol 3.125mg tablet PO SCH ×2 (08:12→19:36)
[2022-03-12] MEDS: apixaban 5mg tablet PO SCH ×2 (08:12→19:36)
[2022-03-12] MEDS: spironolactone 25 MG tablet PO SCH (08:13)
[2022-03-12 11:37] VITALS: BP 95/66
[2022-03-12 14:29] LABS: AFP,SERUM, TUMOR MARKER 4.4 ng/mL (0.0-9.2); CARCINOEMBRYONIC ANTIGEN 2.2 ng/mL (0.0-4.7)
[2022-03-12 16:23] VITALS: BP 88/58
[2022-03-12 18:00] VITALS: BP 94/60
--- NOTE | 2022-03-12 18:20 | NUR ---
Patient in room PCU 3024. I have received report from Andrew ZELAYA and had the opportunity to ask questions and assume patient care.
[2022-03-12 22:00] VITALS: BP 103/46
[2022-03-13] VITALS (7 sets, daily range): BP systolic 89–93; BP diastolic 53–56
--- NOTE | 2022-03-13 06:29 | NUR ---
Problems reprioritized. Patient report given, questions answered & plan of care reviewed with Sotero ZELAYA.
[2022-03-13 06:44] LABS: BASOPHILS % (AUTO) 0.2 % (0-1); EOSINOPHILS % (AUTO) 0.6 % (0-6); HEMOGLOBIN 12.1 g/dl (12.0-16.0); LYMPHOCYTES # (AUTO) 0.7 X10'3 (1.1-4.8); LYMPHOCYTES % (AUTO) 12.6 % (21-51); MEAN CORPUSCULAR HEMOGLOBIN 30.7 PG (27.0-31.0); MEAN CORPUSCULAR HGB CONC 33.6 g/dL (33.0-36.5); MEAN CORPUSCULAR VOLUME 91.1 FL (78-98); MEAN PLATELET VOLUME 8.9 FL (7.4-10.4); MONOCYTES # (AUTO) 0.6 X10'3 (0-0.9); MONOCYTES % (AUTO) 11.5 % (2-12); NEUTROPHILS # (AUTO) 3.9 X10'3 (1.8-7.7); NEUTROPHILS % (AUTO) 75.1 % (42-75); PLATELET COUNT 166 X10'3 (140-440); RED BLOOD COUNT 3.95 X10'6 (4.20-5.60); RED CELL DISTRIBUTION WIDTH 15.3 % (11.5-14.5); WHITE BLOOD COUNT 5.2 X10'3 (4.5-11.0)
[2022-03-13 06:56] LABS: ALANINE AMINOTRANSFERASE 66 U/L (12-78); ALBUMIN 3.7 G/DL (3.4-5.0); ALBUMIN/GLOBULIN RATIO 1.4 (1.1-1.5); ALKALINE PHOSPHATASE 109 IU/L (46-116); ASPARTATE AMINO TRANSFERASE 70 U/L (10-37); BILIRUBIN,TOTAL 2.4 MG/DL (0.1-1.0); BLOOD UREA NITROGEN 59 MG/DL (7-18); CALCIUM 9.8 MG/DL (8.5-10.1); CREATININE 2.46 MG/DL (0.40-0.90); GLUCOSE 108 MG/DL (70-104); TOTAL CARBON DIOXIDE 22.3 MMOL/L (24-32); TOTAL PROTEIN 6.3 G/DL (6.4-8.2); eGFR 19 ML/MIN
[2022-03-13 07:00] LABS: ANION GAP 15 (8-16); CHLORIDE 95 MMOL/L (99-107); POTASSIUM 4.1 MMOL/L (3.5-5.1); SODIUM 132 MMOL/L (135-145)
[2022-03-13] MEDS: furosemide 10 MG/1 ML 10ml inj IV SCH ×2 (08:00→20:00)
[2022-03-13] MEDS: docusate sod 100mg capsule PO SCH ×2 (08:00→20:58)
[2022-03-13] MEDS: carVEDilol 3.125mg tablet PO SCH ×2 (08:00→20:00)
[2022-03-13] MEDS: K and/or MAG REPLACEMENT MC SCH ×2 (08:00→20:00)
[2022-03-13] MEDS: spironolactone 25 MG tablet PO SCH (08:00)
--- NOTE | 2022-03-13 09:18 | NUR ---
Malnutrition consult: Pt admitted w/ CKD, CHF, and cirrhosis w/ ascites per EMR. Pt unsure of wt loss per MST, no scaled wt hx in EMR. Pt appears WD/WN per ED note. Pt reports SOB and hx of fluid retention. Currently on Heart Healthy diet w/ ~25% of 3 meals though complains of some abdominal discomfort r/t ascites. Noted w/ 2+ bilateral ankle edema, though likely related to CHF. At this time, pt does not meet minimum criteria for malnutrition, Will continue to monitor. Addendum: 03/13/22 at [address] Amended: Links added.
[2022-03-13] MEDS: apixaban 5mg tablet PO SCH (10:36)
[2022-03-13] MEDS: HYDROcodone/acetaminophen 5mg/325mg tablet PO PRN (21:01)
[2022-03-14] VITALS (11 sets, daily range): BP systolic 89–127; BP diastolic 53–81
[2022-03-14 06:22] LABS: BASOPHILS % (AUTO) 0.2 % (0-1); EOSINOPHILS % (AUTO) 0.4 % (0-6); HEMATOCRIT 39.4 % (35.0-45.0); HEMOGLOBIN 13.3 g/dl (12.0-16.0); LYMPHOCYTES # (AUTO) 1.1 X10'3 (1.1-4.8); LYMPHOCYTES % (AUTO) 17.8 % (21-51); MEAN CORPUSCULAR HEMOGLOBIN 31.2 PG (27.0-31.0); MEAN CORPUSCULAR HGB CONC 33.8 g/dL (33.0-36.5); MEAN CORPUSCULAR VOLUME 92.4 FL (78-98); MEAN PLATELET VOLUME 8.8 FL (7.4-10.4); MONOCYTES # (AUTO) 0.7 X10'3 (0-0.9); NEUTROPHILS # (AUTO) 4.2 X10'3 (1.8-7.7); NEUTROPHILS % (AUTO) 69.6 % (42-75); PLATELET COUNT 182 X10'3 (140-440); RED BLOOD COUNT 4.27 X10'6 (4.20-5.60); RED CELL DISTRIBUTION WIDTH 15.4 % (11.5-14.5)
[2022-03-14 06:33] LABS: ALANINE AMINOTRANSFERASE 86 U/L (12-78); ALBUMIN/GLOBULIN RATIO 1.4 (1.1-1.5); ALKALINE PHOSPHATASE 119 IU/L (46-116); ANION GAP 14 (8-16); ASPARTATE AMINO TRANSFERASE 88 U/L (10-37); BILIRUBIN,TOTAL 2.7 MG/DL (0.1-1.0); BLOOD UREA NITROGEN 67 MG/DL (7-18); BUN/CREATININE RATIO 23.7 (6.6-38.0); CALCIUM 9.7 MG/DL (8.5-10.1); CHLORIDE 94 MMOL/L (99-107); CREATININE 2.83 MG/DL (0.40-0.90); GLUCOSE 101 MG/DL (70-104); POTASSIUM 4.8 MMOL/L (3.5-5.1); SODIUM 132 MMOL/L (135-145); TOTAL CARBON DIOXIDE 23.7 MMOL/L (24-32); TOTAL PROTEIN 6.9 G/DL (6.4-8.2); eGFR 16 ML/MIN
[2022-03-14] MEDS: furosemide 10 MG/1 ML 10ml inj IV SCH ×2 (08:00→20:35)
[2022-03-14] MEDS: carVEDilol 3.125mg tablet PO SCH ×2 (08:00→20:00)
[2022-03-14] MEDS: K and/or MAG REPLACEMENT MC SCH ×2 (08:00→20:00)
[2022-03-14] MEDS: docusate sod 100mg capsule PO SCH ×2 (08:00→20:34)
[2022-03-14] MEDS: spironolactone 25 MG tablet PO SCH (08:00)
[2022-03-14] MEDS ORDERED: DOBUTamine-DoBUTrex 500mg/D5W 250 ML IV SCH (09:20)
[2022-03-14] MEDS ORDERED: LIDOcaine 1%/PF 5ML 10 MG/ML VIAL ONE (10:45)
[2022-03-14 12:10] LABS: GLUCOSE,BODY FLUID 107 MG/DL; LDH,BODY FLUID 81 U/L; TOTAL PROTEIN,BODY FLUID 3.5 G/DL
[2022-03-14 13:03] LABS: BF MESOTHELIAL CELLS MODERATE; BF RBC COUNT 6900 /CU MM; BF WBC COUNT 400 /CU MM (0-1000); BFAPPEAR CLOUDY; BFCOLOR RED; BFVOLUME 52 ML; EOSINOPHILS,BODY FLUID 2 %; LYMPHOCYTES,BODY FLUID 63 %; MONOCYTES,BODY FLUID 8 %; NEUTROPHILS,BODY FLUID 27 %
--- NOTE | 2022-03-14 18:05 | NUR ---
Problems reprioritized. Patient report given, questions answered & plan of care reviewed with Robyn ZELAYA. Patient is calm and resting in bed.
[2022-03-14] MEDS: HYDROcodone/acetaminophen 5mg/325mg tablet PO PRN (20:30)
--- NOTE | 2022-03-14 20:38 | NUR ---
BP 98/64 HR 102, RN held 20:00 dose of carvedilol Addendum: 03/14/22 at 2037 by Macy Milan RN Amended: Links added.
[2022-03-15] VITALS (7 sets, daily range): BP systolic 93–102; BP diastolic 49–70
--- NOTE | 2022-03-15 06:17 | NUR ---
Problems reprioritized. Patient report given, questions answered & plan of care reviewed with NATHALIE Mon.
--- NOTE | 2022-03-15 06:30 | NUR ---
Patient in room PCU 3024. I have received report from Robyn ZELAYA and had the opportunity to ask questions and assume patient care. Patient is resting in bed and in no acute distress.
--- NOTE | 2022-03-15 06:34 | NUR ---
Patient in room PCU 3024. I have received report from Macy and had the opportunity to ask questions and assume patient care.
[2022-03-15 07:12] LABS: BASOPHILS % (AUTO) 0.2 % (0-1); EOSINOPHILS % (AUTO) 0.7 % (0-6); HEMOGLOBIN 12.5 g/dl (12.0-16.0); LYMPHOCYTES # (AUTO) 0.7 X10'3 (1.1-4.8); MEAN CORPUSCULAR HEMOGLOBIN 30.2 PG (27.0-31.0); MEAN CORPUSCULAR VOLUME 91.6 FL (78-98); MEAN PLATELET VOLUME 8.3 FL (7.4-10.4); MONOCYTES # (AUTO) 0.5 X10'3 (0-0.9); MONOCYTES % (AUTO) 12.2 % (2-12); NEUTROPHILS # (AUTO) 2.8 X10'3 (1.8-7.7); NEUTROPHILS % (AUTO) 69.9 % (42-75); PLATELET COUNT 177 X10'3 (140-440); RED BLOOD COUNT 4.15 X10'6 (4.20-5.60); RED CELL DISTRIBUTION WIDTH 15.1 % (11.5-14.5)
[2022-03-15 07:19] LABS: ALANINE AMINOTRANSFERASE 81 U/L (12-78); ALBUMIN 3.5 G/DL (3.4-5.0); ALBUMIN/GLOBULIN RATIO 1.3 (1.1-1.5); ALKALINE PHOSPHATASE 116 IU/L (46-116); ANION GAP 10 (8-16); ASPARTATE AMINO TRANSFERASE 71 U/L (10-37); BILIRUBIN,TOTAL 2.5 MG/DL (0.1-1.0); BLOOD UREA NITROGEN 60 MG/DL (7-18); BUN/CREATININE RATIO 27.5 (6.6-38.0); CALCIUM 9.9 MG/DL (8.5-10.1); CHLORIDE 97 MMOL/L (99-107); CREATININE 2.18 MG/DL (0.40-0.90); GLUCOSE 128 MG/DL (70-104); POTASSIUM 3.4 MMOL/L (3.5-5.1); SODIUM 135 MMOL/L (135-145); TOTAL CARBON DIOXIDE 28.5 MMOL/L (24-32); TOTAL PROTEIN 6.1 G/DL (6.4-8.2); eGFR 22 ML/MIN
[2022-03-15] MEDS ORDERED: magnesium 4gm in 100ml NS 100 ML IV PRN (07:55)
[2022-03-15] MEDS ORDERED: potassium CL 10mEq/100ml bag 100 ML IV PRN (07:55)
[2022-03-15] MEDS ORDERED: potassium Cl 20 mEq SR tablet PO PRN ×2 (07:55)
[2022-03-15] MEDS ORDERED: magnesium Cl slow-release 64mg tablet PO PRN (07:55)
[2022-03-15] MEDS ORDERED: magnesium 2GM in 50ml NS 50 ML IV PRN (07:55)
[2022-03-15] MEDS: K and/or MAG REPLACEMENT MC SCH ×2 (08:00→20:00)
[2022-03-15] MEDS: carVEDilol 3.125mg tablet PO SCH ×2 (08:07→20:00)
[2022-03-15] MEDS: furosemide 10 MG/1 ML 10ml inj IV SCH (08:09)
[2022-03-15] MEDS: docusate sod 100mg capsule PO SCH ×2 (08:10→20:58)
[2022-03-15 08:35] LABS: HBSAG SCREEN Negative (Negative); HEPATITIS C ANTIBODY <0.1 s/co ratio (0.0-0.9)
[2022-03-15] MEDS ORDERED: potassium Cl 20 mEq SR tablet PO STA (09:48)
[2022-03-15] MEDS: spironolactone 25 MG tablet PO SCH (11:22)
--- NOTE | 2022-03-15 13:50 | NUR ---
Page Sent promotional table spacer PAGER ID: [phone] MESSAGE: [id number] Ag. Pt c/o itchy skin. Can I order PO Benadryl as a PRN? Yaa/ Kecia [id number]
--- NOTE | 2022-03-15 18:18 | NUR ---
Problems reprioritized. Patient report given, questions answered & plan of care reviewed with Macy ZELAYA .
--- NOTE | 2022-03-15 18:27 | NUR ---
[place] documentation: I have reviewed and agree with all interventions, assessments performed and documented by Kecia ZELAYA . [place] Medication Administration: For this medication-pass time frame, all medication were reviewed, dispensed, administered and documented per hospital policy by Kecia ZELAYA .
[2022-03-15] MEDS: furosemide 40mg/4ml inj IV SCH (20:58)
[2022-03-15] MEDS: HYDROcodone/acetaminophen 5mg/325mg tablet PO PRN (20:59)
[2022-03-16 02:00] VITALS: BP 95/58
[2022-03-16 06:00] VITALS: BP 100/65
--- NOTE | 2022-03-16 06:05 | NUR ---
Problems reprioritized. Patient report given, questions answered & plan of care reviewed with NATHALIE Mcdonnell.
--- NOTE | 2022-03-16 06:12 | NUR ---
Patient in room PCU 3024. I have received report from Macy ZELAYA and had the opportunity to ask questions and assume patient care.
--- NOTE | 2022-03-16 07:43 | NUR ---
Initial: Pt admitted w/ acute exacerbation of systolic heart failure, cirrhosis, and acute renal failure per EMR. Currently on Heart healthy/Sodium restricted diet w/ 1.2L fluid restriction, avg intake 25-50% of meals partially meeting needs. Pt could benefit from Ensure Enlive BID if MD agreeable. Pt also had paracentesis 03/14 w/ 3.65L out per documentation. LBM 03/12 receiving routine and PRN bowel care. Will continue to monitor. Recs: 1. Continue Heart Healthy/Sodium restricted diet w/ 1.2L fluid restriction per MD 2. Ensure Enlive BIDBD; pending MD verification 3. Bowel care per rx 4. Scaled wts Addendum: 03/16/22 at [address] Amended: Links added.
[2022-03-16] MEDS: carVEDilol 3.125mg tablet PO SCH ×2 (08:00→20:00)
[2022-03-16] MEDS: spironolactone 25 MG tablet PO SCH (08:00)
[2022-03-16] MEDS: furosemide 40mg/4ml inj IV SCH (08:00)
[2022-03-16] MEDS: docusate sod 100mg capsule PO SCH ×2 (08:00→20:43)
[2022-03-16 08:40] LABS: BASOPHILS % (AUTO) 0.3 % (0-1); EOSINOPHILS % (AUTO) 0.9 % (0-6); HEMATOCRIT 37.9 % (35.0-45.0); HEMOGLOBIN 12.7 g/dl (12.0-16.0); LYMPHOCYTES # (AUTO) 0.8 X10'3 (1.1-4.8); LYMPHOCYTES % (AUTO) 18.2 % (21-51); MEAN CORPUSCULAR HEMOGLOBIN 30.6 PG (27.0-31.0); MEAN CORPUSCULAR HGB CONC 33.4 g/dL (33.0-36.5); MEAN CORPUSCULAR VOLUME 91.5 FL (78-98); MONOCYTES # (AUTO) 0.6 X10'3 (0-0.9); MONOCYTES % (AUTO) 12.8 % (2-12); NEUTROPHILS # (AUTO) 2.9 X10'3 (1.8-7.7); NEUTROPHILS % (AUTO) 67.8 % (42-75); PLATELET COUNT 182 X10'3 (140-440); RED BLOOD COUNT 4.14 X10'6 (4.20-5.60); RED CELL DISTRIBUTION WIDTH 15.3 % (11.5-14.5); WHITE BLOOD COUNT 4.3 X10'3 (4.5-11.0)
[2022-03-16 08:45] VITALS: BP 82/56
[2022-03-16 09:03] LABS: ALANINE AMINOTRANSFERASE 71 U/L (12-78); ALBUMIN 3.7 G/DL (3.4-5.0); ALBUMIN/GLOBULIN RATIO 1.5 (1.1-1.5); ALKALINE PHOSPHATASE 124 IU/L (46-116); ANION GAP 8 (8-16); ASPARTATE AMINO TRANSFERASE 52 U/L (10-37); BILIRUBIN,TOTAL 2.3 MG/DL (0.1-1.0); BLOOD UREA NITROGEN 46 MG/DL (7-18); BUN/CREATININE RATIO 27.7 (6.6-38.0); CALCIUM 9.8 MG/DL (8.5-10.1); CHLORIDE 95 MMOL/L (99-107); CREATININE 1.66 MG/DL (0.40-0.90); GLUCOSE 96 MG/DL (70-104); POTASSIUM 3.2 MMOL/L (3.5-5.1); SODIUM 138 MMOL/L (135-145); TOTAL CARBON DIOXIDE 34.7 MMOL/L (24-32); TOTAL PROTEIN 6.2 G/DL (6.4-8.2); eGFR 30 ML/MIN
[2022-03-16] MEDS: K and/or MAG REPLACEMENT MC SCH ×2 (10:00→20:00)
[2022-03-16 11:00] VITALS: BP 93/57
[2022-03-16] MEDS ORDERED: potassium Cl 20 mEq SR tablet PO STA (16:55)
[2022-03-16 18:00] VITALS: BP 99/52
--- NOTE | 2022-03-16 18:21 | NUR ---
Problems reprioritized. Patient report given, questions answered & plan of care reviewed with Macy ZELAYA.
[2022-03-16] MEDS: lactose-reduced food (Ensure Enlive) - 237ml bottle PO SCH (18:30)
[2022-03-16 20:00] VITALS: BP 91/40
[2022-03-16] MEDS: apixaban 5mg tablet PO SCH (20:44)
[2022-03-16] MEDS: HYDROcodone/acetaminophen 5mg/325mg tablet PO PRN (20:46)
[2022-03-17 02:00] VITALS: BP 100/67
[2022-03-17 06:00] VITALS: BP 91/53
--- NOTE | 2022-03-17 06:25 | NUR ---
Problems reprioritized. Patient report given, questions answered & plan of care reviewed with NATHALIE Dumont.
[2022-03-17] MEDS: spironolactone 25 MG tablet PO SCH (08:00)
[2022-03-17] MEDS: docusate sod 100mg capsule PO SCH (08:19)
[2022-03-17] MEDS: apixaban 5mg tablet PO SCH (08:20)
[2022-03-17] MEDS: furosemide 20MG tablet PO SCH ×2 (08:20→08:30)
[2022-03-17] MEDS: carVEDilol 3.125mg tablet PO SCH (08:20)
[2022-03-17] MEDS: lactose-reduced food (Ensure Enlive) - 237ml bottle PO SCH (08:20)
[2022-03-17 12:17] VITALS: BP 90/59
--- NOTE | 2022-03-17 12:48 | NUR ---
Pt a/ox4, BP Low, other VSS. denies pain. Independent to BR, steady on feet. Spouse at bedside. Completed CHF teaching with patient and spouse, understanding verbalized. Pt aware of followup appointments. Pt verbalized having difficulty processing new diagnosis. Pt encouraged to take time to "process the new information". IV removed intact. Discharge instructions sent home with patient. Follow up appt. made. All personal belongings sent home with patient. pt taken off floor in wheel chair to car.
== END 2022-03-17 12:43 | disposition home or self-care (01) | DRG 432 ==
LOC: ER 14:45 → ED HOLD 03-11 00:22 → PCU 3S 03-11 16:29
PROVIDERS: ADMIT Internal Medicine; ATTEND Family Medicine
PROC: 0W9G3ZX Drainage of Peritoneal Cavity, Percutaneous Approach, Diagnostic (ICD-10-PCS; principal; 2022-03-14)
DX: K74.60 Unspecified cirrhosis of liver (principal); I50.23 Acute on chronic systolic (congestive) heart failure; N17.9 Acute kidney failure, unspecified; I13.0 Hypertensive heart and chronic kidney disease with heart failure and stage 1 through stage 4 chronic kidney disease, or unspecified chronic kidney disease; R18.8 Other ascites; E87.1 Hypo-osmolality and hyponatremia; I42.7 Cardiomyopathy due to drug and external agent; M19.90 Unspecified osteoarthritis, unspecified site; T45.1X5A Adverse effect of antineoplastic and immunosuppressive drugs, initial encounter; E87.6 Hypokalemia; I48.91 Unspecified atrial fibrillation; N18.9 Chronic kidney disease, unspecified; Z85.3 Personal history of malignant neoplasm of breast; Z90.12 Acquired absence of left breast and nipple; Z92.21 Personal history of antineoplastic chemotherapy; Z92.3 Personal history of irradiation; Z95.810 Presence of automatic (implantable) cardiac defibrillator; Z88.2 Allergy status to sulfonamides; Z88.0 Allergy status to penicillin; Y92.89 Other specified places as the place of occurrence of the external cause; Z79.899 Other long term (current) drug therapy
CPT/HCPCS: 36415; 49083; 71045; 74176; 76700; 80053; 81003; 82103; 82378; 82945; 83615; 83735; 83880; 84132; 84157; 84484; 85025; 85610; 85730; 86301; 86803; 87070; 87075; 87081; 87102; 87340; 88108; 88305; 88341; 88342; 89051; 93005; 93306; 97116; 97161; 97530; 99285; G0378; J1250; J1940; J2405; J3490

== ENCOUNTER 2022-03-29 09:16 | Emergency (ER) | payer MEDICARE, BC ==
[~2022-03-29] VITALS: Ht 157.5 cm; Wt 59.1 kg
[~2022-03-29 09:16] MED LIST changes: +ASCO-336 PO; +LORA-269 PO; +ROPI2TAB29 PO; -VALS40TA2 PO
--- NOTE | 2022-03-29 10:20 | NUR ---
Patient assisted to bedside commode; clean catch urine obtained.
[2022-03-29 10:21] LABS: BASOPHILS % (AUTO) 0.1 % (0-1); EOSINOPHILS % (AUTO) 0.5 % (0-6); HEMATOCRIT 41.1 % (35.0-45.0); HEMOGLOBIN 13.7 g/dl (12.0-16.0); LYMPHOCYTES # (AUTO) 0.4 X10'3 (1.1-4.8); MEAN CORPUSCULAR HEMOGLOBIN 29.9 PG (27.0-31.0); MEAN CORPUSCULAR HGB CONC 33.5 g/dL (33.0-36.5); MEAN CORPUSCULAR VOLUME 89.4 FL (78-98); MEAN PLATELET VOLUME 8.4 FL (7.4-10.4); MONOCYTES # (AUTO) 0.5 X10'3 (0-0.9); MONOCYTES % (AUTO) 6.9 % (2-12); NEUTROPHILS % (AUTO) 86.5 % (42-75); PLATELET COUNT 166 X10'3 (140-440); RED CELL DISTRIBUTION WIDTH 15.2 % (11.5-14.5)
[2022-03-29 10:37] LABS: ALANINE AMINOTRANSFERASE 27 U/L (12-78); ALBUMIN 3.6 G/DL (3.4-5.0); ALBUMIN/GLOBULIN RATIO 1.3 (1.1-1.5); ALKALINE PHOSPHATASE 114 IU/L (46-116); ANION GAP 13 (8-16); ASPARTATE AMINO TRANSFERASE 24 U/L (10-37); BILIRUBIN,TOTAL 2.9 MG/DL (0.1-1.0); BLOOD UREA NITROGEN 87 MG/DL (7-18); BUN/CREATININE RATIO 33.1 (6.6-38.0); CALCIUM 10.2 MG/DL (8.5-10.1); CHLORIDE 90 MMOL/L (99-107); CREATININE 2.63 MG/DL (0.40-0.90); GLUCOSE 121 MG/DL (70-104); LIPASE 65 U/L (73-393); POTASSIUM 3.9 MMOL/L (3.5-5.1); SODIUM 130 MMOL/L (135-145); TOTAL CARBON DIOXIDE 26.8 MMOL/L (24-32); TOTAL PROTEIN 6.3 G/DL (6.4-8.2); eGFR 18 ML/MIN
[2022-03-29 10:38] LABS: APTT 39 SECONDS (22-32)
[2022-03-29 10:47] LABS: PLATELET ESTIMATE NORMAL
[2022-03-29 10:48] LABS: ACANTHOCYTES 1+; ELLIPTOCYTES FEW
[2022-03-29 11:03] LABS: CLARITY,URINE CLOUDY (Clear); COLOR,URINE YELLOW (Yellow); GLUCOSE, URINE NEGATIVE (Neg); KETONES,URINE NEGATIVE (Neg); LEUKOCYTE ESTERASE ,URINE TRACE (Neg); NITRITES, URINE NEGATIVE (Neg); OCCULT BLOOD,URINE MODERATE (Neg); PH,URINE 5.5 (4.8-8.0); PROTEIN,URINE NEGATIVE (Neg)
[2022-03-29 11:05] LABS: UA COLLECTION TYPE CLN CATCH MIDSTREAM
[2022-03-29 11:09] LABS: SQUAMOUS EPITHELIAL CELL,UR MANY /LPF (FEW)
[2022-03-29 11:11] LABS: BACTERIA,URINE 3+ /HPF (Neg); COARSE GRANULAR CAST 0-3 /LPF (NEGATIVE)
[2022-03-29 11:12] LABS: WBC CLUMPS,URINE MODERATE /HPF (NEGATIVE)
[2022-03-29 11:14] LABS: URIC ACID CRYSTALS 1+ /HPF (NEGATIVE)
--- NOTE | 2022-03-29 11:22 | NUR ---
visitor at bedside.
[2022-03-29] MEDS ORDERED: normal saline 1000ML IV soln IVB ONE (11:30)
--- NOTE | 2022-03-29 11:49 | NUR ---
Dr. Tom at bedside,cancelled fluid order.No vaginal bleeding noted.
[2022-03-29 12:13] VITALS: BP 101/60
[2022-03-29 13:11] LABS: OCCULT BLOOD STOOL NEGATIVE (Neg)
== END 2022-03-29 12:15 | disposition home or self-care (01) ==
LOC: ER 09:17
DX: I42.9 Cardiomyopathy, unspecified (principal); K92.1 Melena; R19.7 Diarrhea, unspecified; R53.83 Other fatigue; I50.9 Heart failure, unspecified; M19.90 Unspecified osteoarthritis, unspecified site; Z85.3 Personal history of malignant neoplasm of breast; Z95.0 Presence of cardiac pacemaker; Z98.890 Other specified postprocedural states; Z88.2 Allergy status to sulfonamides; Z88.1 Allergy status to other antibiotic agents; Z88.0 Allergy status to penicillin; Z79.899 Other long term (current) drug therapy
CPT/HCPCS: 36415; 80053; 81001; 82272; 83690; 85008; 85025; 85610; 85730; 99284

== ENCOUNTER 2022-05-20 07:36 | Day surgery (SDC) | payer MEDICARE, BC ==
[~2022-05-20] VITALS: Ht 157.5 cm; Wt 62.7 kg
[2022-05-20] MEDS ORDERED: LIDOcaine 1%/PF 5ML 10 MG/ML VIAL IM ONE ×2 (08:00→08:25)
[2022-05-20] MEDS ORDERED: albumin 25% 100mL bottle x 1 IV PRN (08:05)
[2022-05-20 08:15] VITALS: BP 98/63
[2022-05-20 09:24] VITALS: BP 101/56
[2022-05-20 09:39] VITALS: BP 89/64
[2022-05-20 09:58] VITALS: BP 92/63
[2022-05-20 10:43] VITALS: BP 88/59
[2022-05-20 11:34] VITALS: BP 88/62
== END 2022-05-20 10:57 | disposition home or self-care (01) ==
LOC: SSTAY O 07:36
PROVIDERS: ATTEND Radiology Diagnostic Radiology
DX: R18.8 Other ascites (principal); R14.0 Abdominal distension (gaseous); K74.60 Unspecified cirrhosis of liver; I48.91 Unspecified atrial fibrillation; Z85.3 Personal history of malignant neoplasm of breast; Z95.0 Presence of cardiac pacemaker; Z88.2 Allergy status to sulfonamides; Z88.0 Allergy status to penicillin; Z88.1 Allergy status to other antibiotic agents; Z79.899 Other long term (current) drug therapy
CPT/HCPCS: 49083; J3490; P9047; A6258; A6449

== ENCOUNTER 2022-07-08 21:59 | Emergency (ER) | payer MEDICARE, BC ==
[~2022-07-08] VITALS: Ht 157.5 cm; Wt 68.2 kg
[~2022-07-08 21:59] MED LIST changes: -CHOL200074 PO
[2022-07-08 22:55] LABS: BASOPHILS % (AUTO) 0.2 % (0-1); EOSINOPHILS # (AUTO) 0.1 X10'3 (0-0.9); EOSINOPHILS % (AUTO) 0.7 % (0-6); HEMATOCRIT 37.3 % (35.0-45.0); HEMOGLOBIN 12.2 g/dl (12.0-16.0); LYMPHOCYTES # (AUTO) 0.8 X10'3 (1.1-4.8); LYMPHOCYTES % (AUTO) 9.5 % (21-51); MEAN CORPUSCULAR HEMOGLOBIN 29.6 PG (27.0-31.0); MEAN CORPUSCULAR HGB CONC 32.7 g/dL (33.0-36.5); MEAN CORPUSCULAR VOLUME 90.7 FL (78-98); MEAN PLATELET VOLUME 8.6 FL (7.4-10.4); MONOCYTES # (AUTO) 0.7 X10'3 (0-0.9); MONOCYTES % (AUTO) 8.2 % (2-12); NEUTROPHILS # (AUTO) 7.1 X10'3 (1.8-7.7); NEUTROPHILS % (AUTO) 81.4 % (42-75); PLATELET COUNT 225 X10'3 (140-440); RED BLOOD COUNT 4.11 X10'6 (4.20-5.60); RED CELL DISTRIBUTION WIDTH 17.2 % (11.5-14.5); WHITE BLOOD COUNT 8.7 X10'3 (4.5-11.0)
[2022-07-08 23:03] LABS: ALANINE AMINOTRANSFERASE 17 U/L (12-78); ALBUMIN 3.7 G/DL (3.4-5.0); ALBUMIN/GLOBULIN RATIO 1.2 (1.1-1.5); ALKALINE PHOSPHATASE 141 IU/L (46-116); ANION GAP 16 (8-16); ASPARTATE AMINO TRANSFERASE 26 U/L (10-37); BLOOD UREA NITROGEN 56 MG/DL (7-18); BUN/CREATININE RATIO 28.1 (6.6-38.0); CALCIUM 10.1 MG/DL (8.5-10.1); CHLORIDE 95 MMOL/L (99-107); CREATININE 1.99 MG/DL (0.40-0.90); GLUCOSE 103 MG/DL (70-104); POTASSIUM 4.6 MMOL/L (3.5-5.1); SODIUM 134 MMOL/L (135-145); TOTAL CARBON DIOXIDE 23.2 MMOL/L (24-32); TOTAL PROTEIN 6.9 G/DL (6.4-8.2); eGFR 25 ML/MIN
[2022-07-08] MEDS ORDERED: POTA-192 PO (23:25)
[2022-07-08] MEDS ORDERED: ALBU18HF2 INH (23:27)
[2022-07-08] MEDS ORDERED: HYDR-3965 PO (23:27)
[2022-07-08] MEDS ORDERED: CARV-49 PO (23:28)
[2022-07-08] MEDS ORDERED: POTA10CA44 PO (23:30)
[2022-07-09] MEDS ORDERED: oxyCODONE/APAP 10/325mg tablet PO ONE (01:10)
[2022-07-09] MEDS ORDERED: albumin (human) 25% 100 ML IV solution IV ONE (01:30)
[2022-07-09] MEDS ORDERED: LIDOcaine 1% 30ml preserv. free vial IJ STA (06:24)
--- NOTE | 2022-07-09 08:24 | NUR ---
4 L DARK BROWN FLUID FROM PARACENTESIS. 100ML ALBUMIN GIVEN. PT TO WELL
--- NOTE | 2022-07-09 08:30 | NUR ---
Dr Urias made aware of pt's bp 83/54, ''ok to d/c.''
--- NOTE | 2022-07-09 08:43 | NUR ---
Pt d/c home via w/c in good condition,instructions given, pt and verbalized understanding.
[2022-07-09 08:46] VITALS: BP 83/54
== END 2022-07-09 08:48 | disposition home or self-care (01) ==
LOC: ER 22:00
DX: R18.8 Other ascites (principal); R06.00 Dyspnea, unspecified; I50.9 Heart failure, unspecified; N18.9 Chronic kidney disease, unspecified; N17.9 Acute kidney failure, unspecified; M19.90 Unspecified osteoarthritis, unspecified site; Z88.0 Allergy status to penicillin; Z88.1 Allergy status to other antibiotic agents; Z88.2 Allergy status to sulfonamides
CPT/HCPCS: 36415; 49083; 71045; 80053; 83880; 84484; 85025; 93005; 96365; 99285; P9047

== ENCOUNTER 2022-07-14 07:47 | Day surgery (SDC) | payer MEDICARE, BC ==
[~2022-07-14] VITALS: Ht 157.5 cm; Wt 66.9 kg
[2022-07-14] VITALS (10 sets, daily range): BP systolic 82–106; BP diastolic 46–72
[~2022-07-14 07:47] MED LIST changes: +ALBU18HF2 INH; +CARV-49 PO; -CARV3.12 PO; +HYDR-3965 PO; +POTA-192 PO
[2022-07-14] MEDS ORDERED: albumin 25% 100mL bottle x 1 IV PRN (08:05)
[2022-07-14] MEDS ORDERED: LIDOcaine 1%/PF 5ML 10 MG/ML VIAL IJ ONE (08:20)
[2022-07-14] MEDS ORDERED: vitamin b12 PO (08:22)
[2022-07-14] MEDS ORDERED: ROPINIROLE PO (08:27)
[2022-07-14] MEDS ORDERED: albumin (human) 25% 100 ML IV solution IV ONE (10:30)
== END 2022-07-14 11:45 | disposition home or self-care (01) ==
LOC: SSTAY O 07:47
PROVIDERS: ATTEND Preventive Medicine Aerospace Medicine
DX: R18.8 Other ascites (principal); I48.91 Unspecified atrial fibrillation; I42.9 Cardiomyopathy, unspecified; Z85.3 Personal history of malignant neoplasm of breast; K74.60 Unspecified cirrhosis of liver; I95.89 Other hypotension; Z88.0 Allergy status to penicillin; Z88.2 Allergy status to sulfonamides; Z88.8 Allergy status to other drugs, medicaments and biological substances; Z79.899 Other long term (current) drug therapy; Z98.890 Other specified postprocedural states; Z95.0 Presence of cardiac pacemaker; Z88.1 Allergy status to other antibiotic agents
CPT/HCPCS: 49083; J3490; P9047; A6258; A6449

== ENCOUNTER 2022-07-22 19:18 | Emergency (ER) | payer MEDICARE, BC ==
[~2022-07-22] VITALS: Ht 157.5 cm; Wt 64.1 kg
[~2022-07-22 19:18] MED LIST changes: -POTA-192 PO; -ROPI2TAB29 PO; +ROPINIROLE PO
[2022-07-22 19:29] VITALS: BP 93/63
[2022-07-22] MEDS ORDERED: LIDOcaine 1% W/epiNEPHrine 1:100,000 20ml vial SQ ONE (20:25)
[2022-07-22] MEDS ORDERED: LIDOcaine 1% w/EPI 1:100,000 30ml vial (MDV) SQ ONE (20:45)
== END 2022-07-23 05:03 | disposition home or self-care (01) ==
LOC: ER 19:18
DX: R18.8 Other ascites (principal); I50.9 Heart failure, unspecified; N18.9 Chronic kidney disease, unspecified; N17.9 Acute kidney failure, unspecified; Z88.0 Allergy status to penicillin; Z88.1 Allergy status to other antibiotic agents; Z88.2 Allergy status to sulfonamides
CPT/HCPCS: 49083; 93005; 99285; A6258

== ENCOUNTER 2022-07-25 08:36 | Outpatient (CLI) | payer MEDICARE, BC | END 2022-07-25 23:59 | disposition home or self-care (01) | LOC: SSTAY O 08:36 → RAD 23:59 | PROVIDERS: ATTEND Internal Medicine Gastroenterology | DX: K74.60 Unspecified cirrhosis of liver (principal); K76.9 Liver disease, unspecified; K76.89 Other specified diseases of liver; R18.8 Other ascites | CPT/HCPCS: 76700 ==

== ENCOUNTER 2022-07-26 06:58 | Day surgery (SDC) | payer MEDICARE, BC ==
[2022-07-26] VITALS (9 sets, daily range): BP systolic 84–104; BP diastolic 46–79
[~2022-07-26] VITALS: Ht 157.5 cm; Wt 64.8 kg
[2022-07-26] MEDS ORDERED: LIDOcaine 1%/PF 5ML 10 MG/ML VIAL SQ ONE (07:30)
[2022-07-26] MEDS ORDERED: albumin 25% 100mL bottle x 1 IV PRN (07:30)
[2022-07-26] MEDS ORDERED: albumin (human) 25% 100 ML IV solution IV ONE (08:55)
== END 2022-07-26 10:00 | disposition home or self-care (01) ==
LOC: SSTAY O 06:58
PROVIDERS: ATTEND Radiology Diagnostic Radiology
DX: R18.8 Other ascites (principal); I42.9 Cardiomyopathy, unspecified; K74.60 Unspecified cirrhosis of liver; Z95.0 Presence of cardiac pacemaker; Z98.890 Other specified postprocedural states; Z85.3 Personal history of malignant neoplasm of breast; Z79.899 Other long term (current) drug therapy
CPT/HCPCS: 49083; A6223; A6258; J3490; P9047; A6402; A6449

== ENCOUNTER 2022-08-08 08:40 | Day surgery (SDC) | payer MEDICARE, BC ==
[~2022-08-08] VITALS: Ht 157.5 cm; Wt 61.1 kg
[~2022-08-08 08:40] MED LIST changes: -ASCO-336 PO; -FURO-150 PO; -HYDR-3965 PO
[2022-08-08 09:07] VITALS: BP 104/61
[2022-08-08] MEDS ORDERED: albumin 25% 100mL bottle x 1 IV PRN (09:20)
[2022-08-08] MEDS ORDERED: OLAN2.5T3 PO (09:26)
[2022-08-08] MEDS ORDERED: ROPI0.2540 PO (09:26)
[2022-08-08] MEDS ORDERED: LIDOcaine 1% 30ml preserv. free vial SQ STA (09:26)
[2022-08-08] MEDS ORDERED: DOXE3TAB3 PO (09:28)
[2022-08-08] MEDS ORDERED: FURO40TA4 PO (09:28)
[2022-08-08 09:45] VITALS: BP 97/60
[2022-08-08 10:00] VITALS: BP 84/52
[2022-08-08 10:15] VITALS: BP 88/59
[2022-08-08 10:20] VITALS: BP 104/63
[2022-08-08 10:45] VITALS: BP 84/65
== END 2022-08-08 11:00 | disposition home or self-care (01) ==
LOC: SSTAY O 08:40
PROVIDERS: ATTEND Radiology Diagnostic Radiology
DX: R18.8 Other ascites (principal); I48.91 Unspecified atrial fibrillation; K74.60 Unspecified cirrhosis of liver; I42.9 Cardiomyopathy, unspecified; Z88.0 Allergy status to penicillin; Z88.1 Allergy status to other antibiotic agents; Z88.2 Allergy status to sulfonamides; Z79.899 Other long term (current) drug therapy; Z98.890 Other specified postprocedural states; Z95.0 Presence of cardiac pacemaker; Z85.3 Personal history of malignant neoplasm of breast
CPT/HCPCS: 49083; J3490; P9047; A6258; A6449

== ENCOUNTER 2022-08-16 07:42 | Day surgery (SDC) | payer MEDICARE, BC ==
[~2022-08-16] VITALS: Ht 157.5 cm; Wt 59.6 kg
[2022-08-16] VITALS (11 sets, daily range): BP systolic 39–93; BP diastolic 21–63
[~2022-08-16 07:42] MED LIST changes: +DOXE3TAB3 PO; +FURO40TA4 PO; +OLAN2.5T3 PO; +ROPI0.2540 PO; -ROPINIROLE PO
[2022-08-16] MEDS ORDERED: LIDOcaine 1% 30ml preserv. free vial SQ STA (07:56)
[2022-08-16] MEDS ORDERED: albumin 25% 100mL bottle x 1 IV PRN (08:00)
== END 2022-08-16 10:30 | disposition still patient (30) ==
LOC: SSTAY O 07:42
PROVIDERS: ATTEND Radiology Vascular & Interventional Radiology
DX: R18.8 Other ascites (principal); I48.91 Unspecified atrial fibrillation; K74.60 Unspecified cirrhosis of liver; I42.9 Cardiomyopathy, unspecified; Z85.3 Personal history of malignant neoplasm of breast; Z95.0 Presence of cardiac pacemaker; Z79.899 Other long term (current) drug therapy; Z98.890 Other specified postprocedural states
CPT/HCPCS: 49083; J3490; J7030; P9047; A4615; A6258; A6449

== ENCOUNTER 2022-08-16 10:30 | Emergency (ER) | payer MEDICARE, BC ==
[~2022-08-16] VITALS: Ht 157.5 cm; Wt 56.8 kg
--- NOTE | 2022-08-16 11:25 | NUR ---
PATIENT SITTING UP AT BEDSIDE PER MD REQUEST, FAMILY AT BEDSIDE, NO SIGNS OF DISTRESS NOTED.
--- NOTE | 2022-08-16 11:39 | NUR ---
Dr An in to re assess patient at this time.
[2022-08-16 11:53] VITALS: BP 76/59
== END 2022-08-16 12:04 | disposition home or self-care (01) ==
LOC: ER 10:30
DX: I95.9 Hypotension, unspecified (principal); R18.8 Other ascites; I13.0 Hypertensive heart and chronic kidney disease with heart failure and stage 1 through stage 4 chronic kidney disease, or unspecified chronic kidney disease; N18.9 Chronic kidney disease, unspecified; I50.89 Other heart failure; Z88.2 Allergy status to sulfonamides; Z88.0 Allergy status to penicillin; Z88.1 Allergy status to other antibiotic agents; Z79.899 Other long term (current) drug therapy
CPT/HCPCS: 99285

== ENCOUNTER 2022-10-24 07:54 | Day surgery (SDC) | payer MEDICARE, BC ==
[~2022-10-24] VITALS: Ht 157.5 cm; Wt 57.0 kg
[2022-10-24] VITALS (10 sets, daily range): BP systolic 92–110; BP diastolic 62–76
[~2022-10-24 07:54] MED LIST changes: -DOXE3TAB3 PO; -LORA-269 PO; -OLAN2.5T3 PO
[2022-10-24] MEDS ORDERED: LIDOcaine 1% 30ml preserv. free vial SQ STA (08:05)
[2022-10-24] MEDS ORDERED: APIX2.5T PO (08:27)
[2022-10-24] MEDS ORDERED: CYAN500T71 PO (08:27)
[2022-10-24] MEDS ORDERED: METO-539 PO (08:27)
[2022-10-24] MEDS ORDERED: BUME1TAB8 PO (08:27)
[2022-10-24] MEDS ORDERED: AMIO100T4 PO (08:27)
[2022-10-24] MEDS ORDERED: DIGO125T PO (08:27)
[2022-10-24] MEDS ORDERED: SPIR25TA5 PO (08:27)
[2022-10-24] MEDS ORDERED: albumin 25% 100mL bottle x 1 IV PRN (08:50)
== END 2022-10-24 10:30 | disposition home or self-care (01) ==
LOC: SSTAY O 07:54
PROVIDERS: ATTEND Radiology Diagnostic Radiology
DX: R18.8 Other ascites (principal); K74.60 Unspecified cirrhosis of liver; I95.89 Other hypotension; I42.9 Cardiomyopathy, unspecified; Z88.0 Allergy status to penicillin; Z88.2 Allergy status to sulfonamides; Z88.1 Allergy status to other antibiotic agents; Z79.899 Other long term (current) drug therapy; Z98.890 Other specified postprocedural states; Z95.0 Presence of cardiac pacemaker; Z85.3 Personal history of malignant neoplasm of breast
CPT/HCPCS: 49083; J3490; P9047; A6258

== ENCOUNTER 2022-11-17 08:29 | Day surgery (SDC) | payer MEDICARE, BC ==
[~2022-11-17] VITALS: Ht 157.5 cm; Wt 57.4 kg
[2022-11-17] VITALS (13 sets, daily range): BP systolic 43–116; BP diastolic 19–71
[~2022-11-17 08:29] MED LIST changes: +AMIO100T4 PO; +APIX2.5T PO; -APIX5TAB3 PO; +BUME1TAB8 PO; -CARV-49 PO; +DIGO125T PO; -FURO40TA4 PO; +METO-539 PO; -ROPI0.2540 PO
[2022-11-17] MEDS ORDERED: LIDOcaine 1% 30ml preserv. free vial SQ STA (08:38)
[2022-11-17] MEDS: albumin 25% 100mL bottle x 1 IV PRN ×3 (09:34→10:58)
--- NOTE | 2022-11-17 09:45 | NUR ---
BP 89/61 prior to procedure. Brown Broussard stated to start the albumin at bolus rate. Cont to monitor.
--- NOTE | 2022-11-17 10:15 | NUR ---
BP showing 44/19 on monitor. Recheck and BP 75/28. Orders from Brown to bolus a second albumin if needed. Placed pt in trendelenburg position, began albumin bolus.
--- NOTE | 2022-11-17 10:30 | NUR ---
BP showing 43/27 on monitor. Orders for NS 250ml bolus from Brown COSBY. Started bolus. Rechecked and BP 72/38.
--- NOTE | 2022-11-17 10:35 | NUR ---
BP continues to be low. Orders to start 3rd bag on albumin. Will continue to monitor.
--- NOTE | 2022-11-17 10:50 | NUR ---
BP up to 92/67. Stopped NS bolus. Orders to continue albumin until finished. Will continue to monitor
--- NOTE | 2022-11-17 11:00 | NUR ---
BP staying 90s/60s. Patient remains stable. She did not feel symptoms at all. At one point, patient states she has some slight chest pain, placed on conveyor monitor and showing AV paced. Was getting ready to order an EKG and patient states it went away. Patient also noticed a large lump in upper mid abdomen and wanted Brown to come look at it. Brown came to bedside and he states it's probably been there and she just now is noticing it. Brown states she's ok to go home after last albumin as long as BP remains at 90 or above.
== END 2022-11-17 11:40 | disposition home or self-care (01) ==
LOC: SSTAY O 08:29
PROVIDERS: ATTEND Radiology Vascular & Interventional Radiology
DX: R18.8 Other ascites (principal); I48.91 Unspecified atrial fibrillation; I42.9 Cardiomyopathy, unspecified; K74.60 Unspecified cirrhosis of liver; Z95.0 Presence of cardiac pacemaker; Z85.3 Personal history of malignant neoplasm of breast; Z98.890 Other specified postprocedural states
CPT/HCPCS: 49083; J3490; J7030; P9047; A6258

== ENCOUNTER 2022-11-25 08:31 | Day surgery (SDC) | payer MEDICARE, BC ==
[2022-11-25] VITALS (10 sets, daily range): BP systolic 92–104; BP diastolic 45–71
[~2022-11-25] VITALS: Ht 157.5 cm; Wt 57.5 kg
[~2022-11-25 08:31] MED LIST changes: +LIDOcaine 1% 30ml preserv. free vial SQ STA
[2022-11-25] MEDS ORDERED: normal saline 1000ml 1,000 ML IV PRN (09:00)
[2022-11-25] MEDS: albumin 25% 100mL bottle x 1 IV PRN ×2 (10:40→10:41)
== END 2022-11-25 11:35 | disposition home or self-care (01) ==
LOC: SSTAY O 08:31
PROVIDERS: ATTEND Radiology Diagnostic Radiology
DX: R18.8 Other ascites (principal); I48.91 Unspecified atrial fibrillation; K74.60 Unspecified cirrhosis of liver; Z95.0 Presence of cardiac pacemaker; Z88.2 Allergy status to sulfonamides; Z88.1 Allergy status to other antibiotic agents; Z88.8 Allergy status to other drugs, medicaments and biological substances; Z79.899 Other long term (current) drug therapy; Z98.890 Other specified postprocedural states; Z85.3 Personal history of malignant neoplasm of breast
CPT/HCPCS: 49083; A6258; J7030; P9047; A6402

== ENCOUNTER 2022-12-06 07:46 | Day surgery (SDC) | payer MEDICARE, BC ==
[2022-12-06] VITALS (12 sets, daily range): BP systolic 90–103; BP diastolic 60–76
[~2022-12-06] VITALS: Ht 157.5 cm; Wt 56.3 kg
[~2022-12-06 07:46] MED LIST changes: -LIDOcaine 1% 30ml preserv. free vial SQ STA
[2022-12-06] MEDS ORDERED: albumin 25% 100mL bottle x 1 IV PRN (08:05)
[2022-12-06] MEDS ORDERED: LIDOcaine 1% 30ml preserv. free vial SQ STA (09:11)
== END 2022-12-06 12:45 | disposition home or self-care (01) ==
LOC: SSTAY O 07:46
PROVIDERS: ATTEND Radiology Vascular & Interventional Radiology
DX: R18.8 Other ascites (principal); I48.91 Unspecified atrial fibrillation; K74.60 Unspecified cirrhosis of liver; I95.89 Other hypotension; Z85.3 Personal history of malignant neoplasm of breast; Z79.01 Long term (current) use of anticoagulants; Z95.0 Presence of cardiac pacemaker; Z98.890 Other specified postprocedural states; Z88.0 Allergy status to penicillin; Z88.2 Allergy status to sulfonamides; Z79.899 Other long term (current) drug therapy
CPT/HCPCS: 49083; P9047; A6258; A6402

== ENCOUNTER 2022-12-16 08:44 | Day surgery (SDC) | payer MEDICARE, BC ==
[~2022-12-16] VITALS: Ht 157.5 cm; Wt 54.0 kg
[2022-12-16] MEDS ORDERED: LIDOcaine 1% 30ml preserv. free vial SQ STA (08:49)
[2022-12-16 09:05] VITALS: BP 98/70
[2022-12-16] MEDS: albumin 25% 100mL bottle x 1 IV PRN ×2 (09:29→10:25)
[2022-12-16 10:08] VITALS: BP 98/76
[2022-12-16 10:23] VITALS: BP 101/70
[2022-12-16 10:38] VITALS: BP 95/71
[2022-12-16 10:53] VITALS: BP 98/64
[2022-12-16 11:08] VITALS: BP 96/68
== END 2022-12-16 11:50 | disposition home or self-care (01) ==
LOC: SSTAY O 08:44
PROVIDERS: ATTEND Radiology Vascular & Interventional Radiology
DX: R18.8 Other ascites (principal); R14.0 Abdominal distension (gaseous); K74.60 Unspecified cirrhosis of liver; I48.91 Unspecified atrial fibrillation; I42.9 Cardiomyopathy, unspecified; Z85.3 Personal history of malignant neoplasm of breast; Z79.01 Long term (current) use of anticoagulants; Z95.0 Presence of cardiac pacemaker; Z98.890 Other specified postprocedural states; Z88.0 Allergy status to penicillin; Z88.2 Allergy status to sulfonamides; Z79.899 Other long term (current) drug therapy
CPT/HCPCS: 49083; J3490; P9047; A6258; A6449

== ENCOUNTER 2022-12-26 07:33 | Day surgery (SDC) | payer MEDICARE, BC ==
[~2022-12-26] VITALS: Ht 157.5 cm; Wt 53.9 kg
[2022-12-26] MEDS ORDERED: albumin 25% 100mL bottle x 1 IV PRN (07:55)
[2022-12-26] MEDS ORDERED: LIDOcaine 1% 30ml preserv. free vial SQ STA (07:57)
[2022-12-26 09:00] VITALS: BP 109/76
[2022-12-26 09:15] VITALS: BP 101/73
[2022-12-26 09:22] VITALS: BP 98/72
[2022-12-26 09:30] VITALS: BP 108/71
[2022-12-26 09:45] VITALS: BP 103/52
[2022-12-26 10:00] VITALS: BP 102/67
== END 2022-12-26 10:05 | disposition home or self-care (01) ==
LOC: SSTAY O 07:33
PROVIDERS: ATTEND Radiology Diagnostic Radiology
DX: R18.8 Other ascites (principal); R14.0 Abdominal distension (gaseous); I48.91 Unspecified atrial fibrillation; K74.60 Unspecified cirrhosis of liver; I42.9 Cardiomyopathy, unspecified; Z85.3 Personal history of malignant neoplasm of breast; Z95.0 Presence of cardiac pacemaker; Z98.890 Other specified postprocedural states; Z88.0 Allergy status to penicillin; Z88.2 Allergy status to sulfonamides; Z79.899 Other long term (current) drug therapy
CPT/HCPCS: 49083; J3490; P9047; A6258

== ENCOUNTER 2023-01-19 06:27 | Day surgery (SDC) | payer MEDICARE, BC ==
[~2023-01-19] VITALS: Ht 157.5 cm; Wt 56.0 kg
[2023-01-19] MEDS ORDERED: albumin 25% 100mL bottle x 1 IV PRN (06:45)
[2023-01-19] MEDS ORDERED: LIDOcaine 1% 30ml preserv. free vial SQ ONE (06:50)
[2023-01-19] MEDS ORDERED: [UNRECOGNIZED DRUG - OTHER] (07:13)
[2023-01-19] MEDS ORDERED: DOCU-148 PO (07:13)
[2023-01-19 07:15] VITALS: BP 121/67
[2023-01-19 08:21] VITALS: BP 115/62
[2023-01-19 08:36] VITALS: BP 105/50
[2023-01-19 08:51] VITALS: BP 100/43
[2023-01-19 09:06] VITALS: BP 92/47
[2023-01-19 09:19] VITALS: BP 105/65
[2023-01-19] MEDS ORDERED: heparin sodium, porcine/PF 100unit/ml 5ML syringe IV ONE (09:25)
== END 2023-01-19 09:55 | disposition home or self-care (01) ==
LOC: SSTAY O 06:27
PROVIDERS: ATTEND Radiology Vascular & Interventional Radiology
DX: R18.8 Other ascites (principal); R14.0 Abdominal distension (gaseous); K74.60 Unspecified cirrhosis of liver; I48.91 Unspecified atrial fibrillation; Z85.3 Personal history of malignant neoplasm of breast; Z95.0 Presence of cardiac pacemaker; Z88.2 Allergy status to sulfonamides; Z88.0 Allergy status to penicillin; Z88.1 Allergy status to other antibiotic agents; Z79.899 Other long term (current) drug therapy; Z79.01 Long term (current) use of anticoagulants; Z96.641 Presence of right artificial hip joint; Z90.12 Acquired absence of left breast and nipple; Z98.890 Other specified postprocedural states
CPT/HCPCS: 49083; J1642; J3490; P9047; A6258; A6402

== ENCOUNTER 2023-02-02 07:02 | Day surgery (SDC) | payer MEDICARE, BC ==
[~2023-02-02] VITALS: Ht 157.5 cm; Wt 61.6 kg
[~2023-02-02 07:02] MED LIST changes: -ALBU18HF2 INH; +DOCU-148 PO; -METO-539 PO; +[UNRECOGNIZED DRUG - OTHER]
[2023-02-02 07:15] VITALS: BP 130/64
[2023-02-02] MEDS ORDERED: albumin 25% 100mL bottle x 1 IV PRN (07:35)
[2023-02-02] MEDS ORDERED: LIDOcaine 1% 30ml preserv. free vial IJ STA (07:52)
[2023-02-02] MEDS ORDERED: BUME1TAB34 PO (08:13)
[2023-02-02] MEDS ORDERED: ASCO250T68 PO (08:17)
[2023-02-02 08:25] VITALS: BP 127/84
[2023-02-02 08:41] VITALS: BP 125/74
[2023-02-02 08:55] VITALS: BP 111/61
[2023-02-02 09:10] VITALS: BP 110/72
[2023-02-02 09:16] VITALS: BP 117/53
== END 2023-02-02 09:30 | disposition home or self-care (01) ==
LOC: SSTAY O 07:02
PROVIDERS: ATTEND Radiology Vascular & Interventional Radiology
DX: R18.8 Other ascites (principal); R14.0 Abdominal distension (gaseous); I48.91 Unspecified atrial fibrillation; K74.60 Unspecified cirrhosis of liver; I42.9 Cardiomyopathy, unspecified; Z79.01 Long term (current) use of anticoagulants; Z85.3 Personal history of malignant neoplasm of breast; Z95.0 Presence of cardiac pacemaker; Z98.890 Other specified postprocedural states; Z88.2 Allergy status to sulfonamides; Z88.0 Allergy status to penicillin; Z88.1 Allergy status to other antibiotic agents; Z79.899 Other long term (current) drug therapy
CPT/HCPCS: 49083; J3490; P9047; A6258

== ENCOUNTER 2023-02-14 06:58 | Day surgery (SDC) | payer MEDICARE, BC ==
[~2023-02-14] VITALS: Ht 152.4 cm; Wt 62.0 kg
[~2023-02-14 06:58] MED LIST changes: +ASCO250T68 PO; +BUME1TAB34 PO
[2023-02-14] MEDS ORDERED: LIDOcaine 1% 30ml preserv. free vial SQ STA (07:23)
[2023-02-14] MEDS ORDERED: albumin 25% 100mL bottle x 1 IV PRN (07:30)
[2023-02-14] MEDS ORDERED: HYDR-3686 PO (07:46)
[2023-02-14 08:45] VITALS: BP 120/68
[2023-02-14 09:00] VITALS: BP 107/52
[2023-02-14 09:15] VITALS: BP 101/55
[2023-02-14 09:30] VITALS: BP 98/55
[2023-02-14 09:35] VITALS: BP 111/62
[2023-02-14 10:34] VITALS: BP 128/70
== END 2023-02-14 09:45 | disposition home or self-care (01) ==
LOC: SSTAY O 06:58
PROVIDERS: ATTEND Radiology Diagnostic Radiology
DX: R18.8 Other ascites (principal); R14.0 Abdominal distension (gaseous); K74.60 Unspecified cirrhosis of liver; I48.91 Unspecified atrial fibrillation; I42.9 Cardiomyopathy, unspecified; Z85.3 Personal history of malignant neoplasm of breast; Z95.0 Presence of cardiac pacemaker; Z98.890 Other specified postprocedural states; Z79.01 Long term (current) use of anticoagulants; Z88.0 Allergy status to penicillin; Z88.2 Allergy status to sulfonamides; Z79.899 Other long term (current) drug therapy
CPT/HCPCS: 49083; J3490; P9047; A6258

== ENCOUNTER 2023-02-24 07:00 | Day surgery (SDC) | payer MEDICARE, BC ==
[~2023-02-24] VITALS: Ht 152.4 cm; Wt 63.5 kg
[~2023-02-24 07:00] MED LIST changes: +HYDR-3686 PO
[2023-02-24] MEDS ORDERED: LIDOcaine 1% 30ml preserv. free vial SQ STA (07:11)
[2023-02-24] MEDS ORDERED: VALA10002 PO (07:24)
[2023-02-24 07:30] VITALS: BP 111/67
[2023-02-24 09:00] VITALS: BP 147/98
[2023-02-24] MEDS ORDERED: albuterol 2.5 MG/3 ML nebule NEB ONE (09:05)
[2023-02-24 09:15] VITALS: BP 134/70
[2023-02-24 09:30] VITALS: BP 113/70
[2023-02-24 09:45] VITALS: BP 116/62
[2023-02-24] MEDS: albumin 25% 100mL bottle x 1 IV PRN ×2 (09:59→10:02)
[2023-02-24 10:00] VITALS: BP 102/62
== END 2023-02-24 10:09 | disposition home or self-care (01) ==
LOC: SSTAY O 07:00
PROVIDERS: ATTEND Radiology Vascular & Interventional Radiology
DX: R18.8 Other ascites (principal); Z79.899 Other long term (current) drug therapy; I48.91 Unspecified atrial fibrillation; K74.60 Unspecified cirrhosis of liver; Z85.3 Personal history of malignant neoplasm of breast
CPT/HCPCS: 49083; 94640; 94760; J3490; P9047; A6258; A6449

== ENCOUNTER 2023-03-03 06:01 | Day surgery (SDC) | payer MEDICARE, BC ==
[~2023-03-03] VITALS: Ht 152.4 cm; Wt 60.0 kg
[~2023-03-03 06:01] MED LIST changes: +VALA10002 PO
[2023-03-03] MEDS ORDERED: LIDOcaine 1% 30ml preserv. free vial SQ STA (06:11)
[2023-03-03] MEDS ORDERED: albumin 25% 100mL bottle x 1 IV PRN (06:30)
[2023-03-03] MEDS ORDERED: albuterol inhaler INH (06:43)
[2023-03-03] MEDS ORDERED: ciprofloxacin PO (06:43)
[2023-03-03 06:54] VITALS: BP 124/68
[2023-03-03 08:19] VITALS: BP 113/73
[2023-03-03 08:35] VITALS: BP 112/40
[2023-03-03 08:50] VITALS: BP 101/49
[2023-03-03 09:05] VITALS: BP 121/58
== END 2023-03-03 09:20 | disposition home or self-care (01) ==
LOC: SSTAY O 06:01
PROVIDERS: ATTEND Radiology Vascular & Interventional Radiology
DX: R18.8 Other ascites (principal); K74.60 Unspecified cirrhosis of liver; I42.9 Cardiomyopathy, unspecified; I48.91 Unspecified atrial fibrillation; Z88.0 Allergy status to penicillin; Z88.2 Allergy status to sulfonamides; Z88.1 Allergy status to other antibiotic agents; Z79.899 Other long term (current) drug therapy; Z85.3 Personal history of malignant neoplasm of breast
CPT/HCPCS: 49083; J3490; P9047; A6258

== ENCOUNTER 2023-03-13 06:11 | Day surgery (SDC) | payer MEDICARE, BC ==
[~2023-03-13] VITALS: Ht 152.4 cm; Wt 58.8 kg
[~2023-03-13 06:11] MED LIST changes: -BUME1TAB34 PO; -VALA10002 PO; +albuterol inhaler INH; +ciprofloxacin PO
[2023-03-13] MEDS ORDERED: albumin 25% 100mL bottle x 1 IV PRN (06:35)
[2023-03-13] MEDS ORDERED: normal saline 1000ml 1,000 ML IV PRN (06:35)
[2023-03-13 07:00] VITALS: BP 128/68
[2023-03-13] MEDS ORDERED: LIDOcaine 1% 30ml preserv. free vial SQ STA (07:38)
[2023-03-13 08:45] VITALS: BP 135/72
[2023-03-13 09:00] VITALS: BP 122/64
[2023-03-13 09:15] VITALS: BP 114/61
[2023-03-13 09:30] VITALS: BP 108/59
[2023-03-13 09:45] VITALS: BP 109/58
== END 2023-03-13 10:05 | disposition home or self-care (01) ==
LOC: SSTAY O 06:11
PROVIDERS: ATTEND Radiology Vascular & Interventional Radiology
DX: R18.8 Other ascites (principal); R14.0 Abdominal distension (gaseous); K74.60 Unspecified cirrhosis of liver; I42.9 Cardiomyopathy, unspecified; I48.91 Unspecified atrial fibrillation; Z95.0 Presence of cardiac pacemaker; Z98.890 Other specified postprocedural states; Z79.01 Long term (current) use of anticoagulants
CPT/HCPCS: 49083; C1729; J3490; P9047; A6258

== ENCOUNTER 2023-03-21 07:07 | Day surgery (SDC) | payer MEDICARE, BC ==
[~2023-03-21] VITALS: Ht 152.4 cm; Wt 56.2 kg
[~2023-03-21 07:07] MED LIST changes: -ciprofloxacin PO
[2023-03-21 07:29] VITALS: BP 107/58
[2023-03-21] MEDS ORDERED: LIDOcaine 1% 30ml preserv. free vial SQ STA (07:45)
[2023-03-21 08:42] VITALS: BP 144/94
[2023-03-21 08:52] VITALS: BP 101/62
[2023-03-21 08:57] VITALS: BP 96/59
[2023-03-21] MEDS: albumin 25% 100mL bottle x 1 IV PRN ×2 (09:02→09:03)
[2023-03-21 09:10] VITALS: BP 103/57
== END 2023-03-21 09:30 | disposition home or self-care (01) ==
LOC: SSTAY O 07:07
PROVIDERS: ATTEND Radiology Diagnostic Radiology
DX: R18.8 Other ascites (principal); R14.0 Abdominal distension (gaseous); I48.91 Unspecified atrial fibrillation; I42.9 Cardiomyopathy, unspecified; K74.60 Unspecified cirrhosis of liver; Z79.01 Long term (current) use of anticoagulants; Z85.3 Personal history of malignant neoplasm of breast; Z95.0 Presence of cardiac pacemaker; Z98.890 Other specified postprocedural states; Z79.899 Other long term (current) drug therapy
CPT/HCPCS: 49083; J3490; P9047; A6258

== ENCOUNTER 2023-03-30 06:55 | Day surgery (SDC) | payer MEDICARE, BC ==
[~2023-03-30] VITALS: Ht 152.4 cm; Wt 56.8 kg
[2023-03-30] MEDS ORDERED: albumin 25% 100mL bottle x 1 IV PRN (07:15)
[2023-03-30] MEDS ORDERED: LIDOcaine 1%/PF 5ML 10 MG/ML VIAL SQ ONE (07:20)
[2023-03-30 07:30] VITALS: BP 103/55
[2023-03-30 08:22] VITALS: BP 126/62
[2023-03-30 08:37] VITALS: BP 151/88
[2023-03-30 08:53] VITALS: BP 101/47
[2023-03-30 09:07] VITALS: BP 104/62
[2023-03-30 09:22] VITALS: BP 111/59
== END 2023-03-30 10:07 | disposition home or self-care (01) ==
LOC: SSTAY O 06:55
PROVIDERS: ATTEND Radiology Vascular & Interventional Radiology
DX: R18.8 Other ascites (principal); R14.0 Abdominal distension (gaseous); I48.91 Unspecified atrial fibrillation; I42.9 Cardiomyopathy, unspecified; K74.60 Unspecified cirrhosis of liver; Z95.0 Presence of cardiac pacemaker; Z98.890 Other specified postprocedural states; Z88.2 Allergy status to sulfonamides; Z88.0 Allergy status to penicillin; Z88.1 Allergy status to other antibiotic agents; Z85.3 Personal history of malignant neoplasm of breast; Z79.01 Long term (current) use of anticoagulants; Z79.899 Other long term (current) drug therapy
CPT/HCPCS: 49083; J3490; A6258

== ENCOUNTER 2023-04-07 08:39 | Day surgery (SDC) | payer MEDICARE, BC ==
[~2023-04-07] VITALS: Ht 152.4 cm; Wt 59.6 kg
[2023-04-07] VITALS (7 sets, daily range): BP systolic 91–104; BP diastolic 43–66
[2023-04-07] MEDS ORDERED: LIDOcaine 1%/PF 5ML 10 MG/ML VIAL SQ ONE (08:55)
[2023-04-07] MEDS ORDERED: albumin 25% 100mL bottle x 1 IV PRN (09:05)
== END 2023-04-07 11:15 | disposition home or self-care (01) ==
LOC: SSTAY O 08:39
PROVIDERS: ATTEND Radiology Vascular & Interventional Radiology
DX: R18.8 Other ascites (principal); R14.0 Abdominal distension (gaseous); K74.60 Unspecified cirrhosis of liver; I48.91 Unspecified atrial fibrillation; I42.9 Cardiomyopathy, unspecified; I95.89 Other hypotension; Z79.01 Long term (current) use of anticoagulants; Z85.3 Personal history of malignant neoplasm of breast; Z95.0 Presence of cardiac pacemaker; Z98.890 Other specified postprocedural states; Z88.0 Allergy status to penicillin; Z88.2 Allergy status to sulfonamides; Z79.899 Other long term (current) drug therapy
CPT/HCPCS: 49083; J3490; P9047; A6258; A6449

== ENCOUNTER 2023-04-17 08:41 | Day surgery (SDC) | payer MEDICARE, BC ==
[~2023-04-17] VITALS: Ht 152.4 cm; Wt 58.6 kg
[2023-04-17] MEDS ORDERED: LIDOcaine 1%/PF 5ML 10 MG/ML VIAL SQ ONE (09:05)
[2023-04-17] MEDS ORDERED: normal saline 1000ml 1,000 ML IV PRN (09:10)
[2023-04-17] MEDS ORDERED: albumin 25% 100mL bottle x 1 IV PRN (09:10)
[2023-04-17 09:13] VITALS: BP 100/54
[2023-04-17] MEDS ORDERED: BUME2TAB7 PO (09:22)
[2023-04-17 09:51] VITALS: BP 102/76
[2023-04-17 10:05] VITALS: BP 98/75
[2023-04-17 10:15] VITALS: BP 98/75
== END 2023-04-17 10:30 | disposition home or self-care (01) ==
LOC: SSTAY O 08:41
PROVIDERS: ATTEND Radiology Vascular & Interventional Radiology
DX: R18.8 Other ascites (principal); R14.0 Abdominal distension (gaseous); K74.60 Unspecified cirrhosis of liver; I42.9 Cardiomyopathy, unspecified; I48.91 Unspecified atrial fibrillation; I95.89 Other hypotension; Z79.01 Long term (current) use of anticoagulants; Z85.3 Personal history of malignant neoplasm of breast; Z95.0 Presence of cardiac pacemaker; Z98.890 Other specified postprocedural states; Z79.899 Other long term (current) drug therapy
CPT/HCPCS: 49083; J3490; P9047; A6258

== ENCOUNTER 2023-04-27 07:52 | Day surgery (SDC) | payer MEDICARE, BC ==
[~2023-04-27] VITALS: Ht 152.4 cm; Wt 60.3 kg
[~2023-04-27 07:52] MED LIST changes: -BUME1TAB8 PO; +BUME2TAB7 PO
[2023-04-27] MEDS ORDERED: LIDOcaine 1%/PF 5ML 10 MG/ML VIAL SQ ONE (08:00)
[2023-04-27 08:20] VITALS: BP 131/82
[2023-04-27] MEDS ORDERED: albumin 25% 100mL bottle x 1 IV PRN (08:20)
[2023-04-27] MEDS ORDERED: PREG50CA PO (08:27)
[2023-04-27 10:05] VITALS: BP 116/71
[2023-04-27 10:20] VITALS: BP 107/72
[2023-04-27 10:35] VITALS: BP 97/65
[2023-04-27 10:50] VITALS: BP 103/66
== END 2023-04-27 11:05 | disposition home or self-care (01) ==
LOC: SSTAY O 07:52
PROVIDERS: ATTEND Radiology Vascular & Interventional Radiology
DX: R18.8 Other ascites (principal); R14.0 Abdominal distension (gaseous); I48.91 Unspecified atrial fibrillation; K74.60 Unspecified cirrhosis of liver; I42.9 Cardiomyopathy, unspecified; I95.89 Other hypotension; Z79.01 Long term (current) use of anticoagulants; Z98.890 Other specified postprocedural states; Z95.0 Presence of cardiac pacemaker; Z85.3 Personal history of malignant neoplasm of breast; Z88.0 Allergy status to penicillin; Z88.2 Allergy status to sulfonamides; Z88.1 Allergy status to other antibiotic agents; Z79.899 Other long term (current) drug therapy
CPT/HCPCS: 49083; J3490; P9047; A6258; A6449

== ENCOUNTER 2023-05-08 08:44 | Day surgery (SDC) | payer MEDICARE, BC ==
[~2023-05-08] VITALS: Ht 152.4 cm; Wt 61.4 kg
[~2023-05-08 08:44] MED LIST changes: +PREG50CA PO
[2023-05-08] MEDS ORDERED: albumin 25% 100mL bottle x 1 IV PRN (09:05)
[2023-05-08] MEDS ORDERED: normal saline 1000ml 1,000 ML IV PRN (09:10)
[2023-05-08] MEDS ORDERED: LIDOcaine 1% 30ml preserv. free vial SQ STA (09:17)
[2023-05-08] MEDS ORDERED: CELE200C PO (09:24)
[2023-05-08 09:53] VITALS: BP 115/69
[2023-05-08 10:06] VITALS: BP 99/66
[2023-05-08 10:23] VITALS: BP 97/62
[2023-05-08 10:36] VITALS: BP 96/60
[2023-05-08 10:51] VITALS: BP 97/57
[2023-05-08 11:00] VITALS: BP 99/68
== END 2023-05-08 11:15 | disposition home or self-care (01) ==
LOC: SSTAY O 08:44
PROVIDERS: ATTEND Radiology Vascular & Interventional Radiology
DX: R18.8 Other ascites (principal); R14.0 Abdominal distension (gaseous); I48.91 Unspecified atrial fibrillation; I42.9 Cardiomyopathy, unspecified; K74.60 Unspecified cirrhosis of liver; I95.89 Other hypotension; Z98.890 Other specified postprocedural states; Z85.3 Personal history of malignant neoplasm of breast; Z95.0 Presence of cardiac pacemaker; Z79.899 Other long term (current) drug therapy
CPT/HCPCS: 49083; C1729; J3490; P9047; A6258; A6449

== ENCOUNTER 2023-05-26 08:08 | Day surgery (SDC) | payer MEDICARE, BC ==
[~2023-05-26] VITALS: Ht 152.4 cm; Wt 58.2 kg
[~2023-05-26 08:08] MED LIST changes: +CELE200C PO; +[UNRECOGNIZED DRUG - CODE]
[2023-05-26 08:37] VITALS: BP 111/76
[2023-05-26] MEDS ORDERED: albumin 25% 100mL bottle x 1 IV PRN (09:00)
[2023-05-26 09:22] VITALS: BP 136/57
[2023-05-26 09:37] VITALS: BP 102/66
[2023-05-26 09:54] VITALS: BP 95/66
[2023-05-26 10:15] VITALS: BP 97/63
== END 2023-05-26 10:50 | disposition home or self-care (01) ==
LOC: SSTAY O 08:08
PROVIDERS: ATTEND Radiology Diagnostic Radiology
DX: R18.8 Other ascites (principal); I48.91 Unspecified atrial fibrillation; K74.60 Unspecified cirrhosis of liver; I42.9 Cardiomyopathy, unspecified; I95.89 Other hypotension; Z79.01 Long term (current) use of anticoagulants; Z98.890 Other specified postprocedural states; Z85.3 Personal history of malignant neoplasm of breast; Z95.0 Presence of cardiac pacemaker
CPT/HCPCS: 49083; C1729; J3490; A6258

== ENCOUNTER 2023-07-11 08:36 | Day surgery (SDC) | payer MEDICARE, BC ==
[2023-07-11] VITALS (9 sets, daily range): BP systolic 101–132; BP diastolic 53–99; PULSE 72–84; RESP 12–15; TEMP 97.5; O2SAT 93–98
[~2023-07-11] VITALS: Ht 152.4 cm; Wt 53.3 kg
[~2023-07-11 08:36] MED LIST changes: -albuterol inhaler INH
[2023-07-11] MEDS ORDERED: normal saline 1000ml 1,000 ML IV PRN (08:55)
[2023-07-11] MEDS ORDERED: albumin 25% 100mL bottle x 1 IV PRN (08:55)
== END 2023-07-11 11:40 | disposition home or self-care (01) ==
LOC: SSTAY O 08:36
PROVIDERS: ATTEND Radiology Vascular & Interventional Radiology
DX: R18.8 Other ascites (principal); R14.0 Abdominal distension (gaseous); I48.91 Unspecified atrial fibrillation; I95.89 Other hypotension; K74.60 Unspecified cirrhosis of liver; Z79.899 Other long term (current) drug therapy; Z79.01 Long term (current) use of anticoagulants; Z98.890 Other specified postprocedural states; Z95.0 Presence of cardiac pacemaker; Z85.3 Personal history of malignant neoplasm of breast; Z88.0 Allergy status to penicillin; Z88.2 Allergy status to sulfonamides
CPT/HCPCS: 49083; C1729; J3490; P9047; A6258; A6449

== ENCOUNTER 2023-07-24 08:52 | Day surgery (SDC) | payer MEDICARE, BC ==
[~2023-07-24] VITALS: Ht 152.4 cm; Wt 51.8 kg
[2023-07-24] MEDS ORDERED: albumin 25% 100mL bottle x 1 IV PRN (09:35)
[2023-07-24 10:20] VITALS: BP 95/61; PULSE 67; RESP 16; O2SAT 97
== END 2023-07-24 10:30 | disposition home or self-care (01) ==
LOC: SSTAY O 08:52
PROVIDERS: ATTEND Radiology Diagnostic Radiology
DX: R18.8 Other ascites (principal); Z53.8 Procedure and treatment not carried out for other reasons; R14.0 Abdominal distension (gaseous); I48.91 Unspecified atrial fibrillation; K74.60 Unspecified cirrhosis of liver; I42.9 Cardiomyopathy, unspecified; I95.89 Other hypotension; Z88.0 Allergy status to penicillin; Z88.2 Allergy status to sulfonamides; Z88.1 Allergy status to other antibiotic agents; Z85.3 Personal history of malignant neoplasm of breast; Z98.890 Other specified postprocedural states; Z95.0 Presence of cardiac pacemaker; Z79.899 Other long term (current) drug therapy
CPT/HCPCS: 76705; A6258; A6449

== ENCOUNTER 2023-08-03 08:06 | Day surgery (SDC) | payer MEDICARE, BC ==
[2023-08-03 08:41] VITALS: BP 138/78; PULSE 85; RESP 20; TEMP 97.6; O2SAT 96
[2023-08-03] MEDS ORDERED: BUME1TAB8 PO (09:00)
[2023-08-03] MEDS ORDERED: CIPR-260 PO (09:00)
== END 2023-08-03 09:35 | disposition home or self-care (01) ==
LOC: SSTAY O 08:06
PROVIDERS: ATTEND Radiology Vascular & Interventional Radiology
DX: R18.8 Other ascites (principal); Z53.8 Procedure and treatment not carried out for other reasons; I48.91 Unspecified atrial fibrillation; I42.9 Cardiomyopathy, unspecified; R14.0 Abdominal distension (gaseous); K74.60 Unspecified cirrhosis of liver; Z79.01 Long term (current) use of anticoagulants; Z98.890 Other specified postprocedural states; Z85.3 Personal history of malignant neoplasm of breast; Z95.0 Presence of cardiac pacemaker; Z79.899 Other long term (current) drug therapy; Z88.0 Allergy status to penicillin; Z88.2 Allergy status to sulfonamides; Z88.1 Allergy status to other antibiotic agents
CPT/HCPCS: 76705; A6258

== ENCOUNTER 2023-09-04 08:03 | Day surgery (SDC) | payer MEDICARE, BC ==
[~2023-09-04] VITALS: Ht 12.7 cm; Wt 80.2 kg
[~2023-09-04 08:03] MED LIST changes: +BUME1TAB8 PO; -BUME2TAB7 PO; -CELE200C PO; +PANT-47 PO; -PREG50CA PO; -[UNRECOGNIZED DRUG - CODE]
[2023-09-04 08:20] VITALS: BP 99/60; PULSE 73; RESP 16; TEMP 97.5; O2SAT 94
[2023-09-04] MEDS ORDERED: normal saline 1000ml 1,000 ML IV PRN (08:35)
[2023-09-04] MEDS ORDERED: albumin 25% 100mL bottle x 1 IV PRN (08:35)
--- NOTE | 2023-09-04 09:15 | NUR ---
Limited US only. Not enough fluid to safely continue with procedure. Procedure cancelled. Pt to be discharged.
== END 2023-09-04 09:30 | disposition home or self-care (01) ==
LOC: SSTAY O 08:03
PROVIDERS: ATTEND Radiology Vascular & Interventional Radiology
DX: R18.8 Other ascites (principal); Z53.8 Procedure and treatment not carried out for other reasons; R14.0 Abdominal distension (gaseous); I48.91 Unspecified atrial fibrillation; K74.60 Unspecified cirrhosis of liver; I42.9 Cardiomyopathy, unspecified; I95.89 Other hypotension; Z85.3 Personal history of malignant neoplasm of breast; Z95.0 Presence of cardiac pacemaker; Z98.890 Other specified postprocedural states; Z88.2 Allergy status to sulfonamides; Z88.0 Allergy status to penicillin; Z88.1 Allergy status to other antibiotic agents; Z79.899 Other long term (current) drug therapy
CPT/HCPCS: 76705; A6258; A6449

== ENCOUNTER 2023-09-21 08:11 | Day surgery (SDC) | payer MEDICARE, BC ==
[~2023-09-21] VITALS: Ht 152.4 cm; Wt 51.1 kg
[2023-09-21] MEDS ORDERED: albumin 25% 100mL bottle x 1 IV PRN (08:35)
[2023-09-21 08:47] VITALS: BP 116/66; PULSE 75; RESP 18; TEMP 97.6; O2SAT 99
[2023-09-21 09:07] VITALS: BP 110/55; PULSE 66; RESP 18; O2SAT 95
== END 2023-09-21 09:21 | disposition home or self-care (01) ==
LOC: SSTAY O 08:11
PROVIDERS: ATTEND Radiology Diagnostic Radiology
DX: R18.8 Other ascites (principal); I48.91 Unspecified atrial fibrillation; I42.9 Cardiomyopathy, unspecified; Z85.3 Personal history of malignant neoplasm of breast; Z79.01 Long term (current) use of anticoagulants; Z95.0 Presence of cardiac pacemaker; Z98.890 Other specified postprocedural states
CPT/HCPCS: 76705; A6258

== ENCOUNTER 2023-10-05 08:08 | Day surgery (SDC) | payer MEDICARE, BC ==
[~2023-10-05] VITALS: Ht 152.4 cm; Wt 51.7 kg
[~2023-10-05 08:08] MED LIST changes: -PANT-47 PO
[2023-10-05] MEDS ORDERED: albumin 25% 100mL bottle x 1 IV PRN (08:45)
[2023-10-05 09:18] VITALS: BP 93/61; PULSE 67; RESP 16; TEMP 97.6; O2SAT 92
[2023-10-05 09:21] VITALS: RESP 16; O2SAT 92
[2023-10-05 10:14] VITALS: BP 104/65; PULSE 92; RESP 16; O2SAT 94
[2023-10-05 10:30] VITALS: BP 99/55; PULSE 72; RESP 16; O2SAT 96
[2023-10-05 10:39] VITALS: BP 98/46; PULSE 71; RESP 16; O2SAT 93
== END 2023-10-05 10:50 | disposition home or self-care (01) ==
LOC: SSTAY O 08:08
PROVIDERS: ATTEND Radiology Vascular & Interventional Radiology
DX: R18.8 Other ascites (principal); R14.0 Abdominal distension (gaseous); K74.60 Unspecified cirrhosis of liver; I48.91 Unspecified atrial fibrillation; I95.89 Other hypotension; I42.9 Cardiomyopathy, unspecified; Z98.890 Other specified postprocedural states; Z79.01 Long term (current) use of anticoagulants; Z85.3 Personal history of malignant neoplasm of breast; Z95.0 Presence of cardiac pacemaker; Z88.2 Allergy status to sulfonamides; Z88.0 Allergy status to penicillin; Z88.1 Allergy status to other antibiotic agents; Z79.899 Other long term (current) drug therapy
CPT/HCPCS: 49083; C1729; 76705; A6258; A6449

== ENCOUNTER 2023-11-06 06:44 | Day surgery (SDC) | payer MEDICARE, BC ==
[~2023-11-06] VITALS: Ht 152.4 cm; Wt 51.0 kg
[2023-11-06] VITALS (7 sets, daily range): BP systolic 88–97; BP diastolic 48–59; PULSE 60–61; RESP 16; TEMP 97.4; O2SAT 96–98
[2023-11-06] MEDS ORDERED: albumin 25% 100mL bottle x 1 IV PRN (07:00)
== END 2023-11-06 09:20 | disposition home or self-care (01) ==
LOC: SSTAY O 06:44
PROVIDERS: ATTEND Radiology Vascular & Interventional Radiology
DX: R18.8 Other ascites (principal); R14.0 Abdominal distension (gaseous); I48.91 Unspecified atrial fibrillation; I42.9 Cardiomyopathy, unspecified; K74.60 Unspecified cirrhosis of liver; Z98.890 Other specified postprocedural states; Z79.01 Long term (current) use of anticoagulants; Z95.0 Presence of cardiac pacemaker; Z88.2 Allergy status to sulfonamides; Z88.0 Allergy status to penicillin; Z88.1 Allergy status to other antibiotic agents; Z79.899 Other long term (current) drug therapy
CPT/HCPCS: 49083; C1729; A6258

== ENCOUNTER 2023-11-17 08:06 | Day surgery (SDC) | payer MEDICARE, BC ==
[~2023-11-17] VITALS: Ht 152.4 cm; Wt 54.6 kg
[2023-11-17] MEDS ORDERED: albumin 25% 100mL bottle x 1 IV PRN (08:30)
[2023-11-17] MEDS ORDERED: normal saline 1000ml 1,000 ML IV PRN (08:30)
[2023-11-17 09:03] VITALS: BP 102/58; PULSE 57; RESP 16; TEMP 97.9; O2SAT 98
[2023-11-17 09:28] VITALS: BP 102/56; PULSE 51; RESP 16; O2SAT 99
[2023-11-17 09:45] VITALS: BP 106/52; PULSE 58; RESP 15; O2SAT 99
[2023-11-17 10:00] VITALS: BP 111/57; PULSE 63; RESP 15; O2SAT 99
[2023-11-17 10:15] VITALS: BP 100/59; PULSE 69; RESP 15; O2SAT 99
[2023-11-17 10:30] VITALS: BP 97/52; PULSE 67; RESP 15; O2SAT 99
== END 2023-11-17 10:45 | disposition home or self-care (01) ==
LOC: SSTAY O 08:06
PROVIDERS: ATTEND Radiology Vascular & Interventional Radiology
DX: R18.8 Other ascites (principal); R18.0 Malignant ascites; I48.91 Unspecified atrial fibrillation; I95.89 Other hypotension; I42.9 Cardiomyopathy, unspecified; K74.60 Unspecified cirrhosis of liver; Z79.01 Long term (current) use of anticoagulants; Z98.890 Other specified postprocedural states; Z95.0 Presence of cardiac pacemaker; Z85.3 Personal history of malignant neoplasm of breast
CPT/HCPCS: 49083; C1729; A6258

== ENCOUNTER 2023-11-30 07:16 | Day surgery (SDC) | payer MEDICARE, BC ==
[~2023-11-30] VITALS: Ht 152.4 cm; Wt 54.4 kg
[2023-11-30] MEDS ORDERED: normal saline 1000ml 1,000 ML IV PRN (07:35)
[2023-11-30] MEDS ORDERED: albumin 25% 100mL bottle x 1 IV PRN (07:35)
[2023-11-30 07:40] VITALS: BP 89/54; PULSE 67; RESP 14; TEMP 97.9; O2SAT 96
[2023-11-30] MEDS ORDERED: CELE50CA PO (08:19)
[2023-11-30] MEDS ORDERED: GUAI600T45 PO (08:19)
[2023-11-30 08:33] VITALS: BP 112/65; PULSE 72; RESP 16; O2SAT 98
[2023-11-30 08:54] VITALS: RESP 16; O2SAT 98
[2023-11-30 09:00] VITALS: BP 110/60; PULSE 68; RESP 16; O2SAT 97
[2023-11-30 09:15] VITALS: BP 103/58; PULSE 67; RESP 16; O2SAT 97
== END 2023-11-30 09:25 | disposition home or self-care (01) ==
LOC: SSTAY O 07:16
PROVIDERS: ATTEND Radiology Vascular & Interventional Radiology
DX: R18.8 Other ascites (principal); R14.0 Abdominal distension (gaseous); I48.91 Unspecified atrial fibrillation; K74.60 Unspecified cirrhosis of liver; I42.9 Cardiomyopathy, unspecified; I95.89 Other hypotension; Z79.01 Long term (current) use of anticoagulants; Z85.3 Personal history of malignant neoplasm of breast; Z98.890 Other specified postprocedural states; Z95.0 Presence of cardiac pacemaker; Z88.2 Allergy status to sulfonamides; Z88.0 Allergy status to penicillin; Z88.1 Allergy status to other antibiotic agents; Z79.899 Other long term (current) drug therapy
CPT/HCPCS: 49083; C1729; P9047; 96360; A6258

== ENCOUNTER 2023-12-14 07:07 | Day surgery (SDC) | payer MEDICARE, BC ==
[~2023-12-14] VITALS: Ht 152.4 cm; Wt 54.9 kg
[~2023-12-14 07:07] MED LIST changes: +CELE50CA PO; +GUAI600T45 PO
[2023-12-14] MEDS ORDERED: albumin 25% 100mL bottle x 1 IV PRN (07:30)
[2023-12-14 07:41] VITALS: BP 110/78; PULSE 78; RESP 16; TEMP 98.2; O2SAT 97
[2023-12-14 08:46] VITALS: BP 102/63; PULSE 60; RESP 14; O2SAT 94
[2023-12-14 08:59] VITALS: BP 92/60; PULSE 60; RESP 14; O2SAT 94
[2023-12-14 09:13] VITALS: BP 102/61; PULSE 61; RESP 14; O2SAT 94
== END 2023-12-14 09:30 | disposition home or self-care (01) ==
LOC: SSTAY O 07:07
PROVIDERS: ATTEND Radiology Vascular & Interventional Radiology
DX: R18.8 Other ascites (principal); K74.60 Unspecified cirrhosis of liver; I48.91 Unspecified atrial fibrillation; I95.89 Other hypotension; I42.9 Cardiomyopathy, unspecified; Z85.3 Personal history of malignant neoplasm of breast; Z95.0 Presence of cardiac pacemaker; Z98.890 Other specified postprocedural states; Z79.01 Long term (current) use of anticoagulants; Z79.899 Other long term (current) drug therapy
CPT/HCPCS: 49083; C1729; 96360; A6258

== ENCOUNTER 2023-12-28 07:39 | Day surgery (SDC) | payer MEDICARE, BC ==
[~2023-12-28] VITALS: Ht 152.4 cm; Wt 56.5 kg
[2023-12-28 08:11] VITALS: BP 95/53; PULSE 60; RESP 16; TEMP 97.7; O2SAT 95
[2023-12-28 08:30] VITALS: RESP 16; O2SAT 92
== END 2023-12-28 10:00 | disposition home or self-care (01) ==
LOC: SSTAY O 07:39
PROVIDERS: ATTEND Radiology Vascular & Interventional Radiology
DX: R18.8 Other ascites (principal); I48.91 Unspecified atrial fibrillation; I50.9 Heart failure, unspecified; I42.9 Cardiomyopathy, unspecified; Z85.3 Personal history of malignant neoplasm of breast; Z79.01 Long term (current) use of anticoagulants; Z79.899 Other long term (current) drug therapy; Z95.0 Presence of cardiac pacemaker; Z88.2 Allergy status to sulfonamides; Z88.0 Allergy status to penicillin; Z88.8 Allergy status to other drugs, medicaments and biological substances
CPT/HCPCS: 49083; C1729; A6258

== ENCOUNTER 2024-01-11 06:59 | Day surgery (SDC) | payer MEDICARE, BC ==
[~2024-01-11] VITALS: Ht 152.4 cm; Wt 57.7 kg
[~2024-01-11 06:59] MED LIST changes: -CELE50CA PO; -GUAI600T45 PO
[2024-01-11 07:10] VITALS: BP 96/50; PULSE 73; RESP 16; TEMP 97.6; O2SAT 97
[2024-01-11 09:10] VITALS: BP 101/61; PULSE 57; RESP 16; O2SAT 95
[2024-01-11 09:25] VITALS: BP 123/80; PULSE 77; RESP 15; O2SAT 97
[2024-01-11 09:35] VITALS: BP 108/72; PULSE 75; RESP 17; O2SAT 95
[2024-01-11 09:50] VITALS: BP 106/68; PULSE 62; RESP 17; O2SAT 95
[2024-01-11] MEDS: albumin 25% 100mL bottle x 1 IV PRN (10:25)
== END 2024-01-11 10:00 | disposition home or self-care (01) ==
LOC: SSTAY O 06:59
PROVIDERS: ATTEND Radiology Vascular & Interventional Radiology
DX: R18.8 Other ascites (principal); R14.0 Abdominal distension (gaseous); K74.60 Unspecified cirrhosis of liver; I95.89 Other hypotension; I42.9 Cardiomyopathy, unspecified; D70.9 Neutropenia, unspecified; Z85.3 Personal history of malignant neoplasm of breast; Z95.0 Presence of cardiac pacemaker; Z98.890 Other specified postprocedural states; Z79.899 Other long term (current) drug therapy
CPT/HCPCS: 49083; C1729; A6258; A6449

== ENCOUNTER 2024-01-22 07:42 | Day surgery (SDC) | payer MEDICARE, BC ==
[2024-01-22] VITALS (7 sets, daily range): BP systolic 103–124; BP diastolic 46–72; PULSE 42–46; RESP 16; TEMP 96.7; O2SAT 92–96
[~2024-01-22] VITALS: Ht 152.4 cm; Wt 59.1 kg
[2024-01-22] MEDS ORDERED: [UNRECOGNIZED DRUG - CODE] (08:16)
[2024-01-22] MEDS ORDERED: BUME1TAB34 PO (08:16)
[2024-01-22] MEDS: albumin 25% 100mL bottle x 1 IV PRN (08:30)
== END 2024-01-22 10:08 | disposition home or self-care (01) ==
LOC: SSTAY O 07:42
PROVIDERS: ATTEND Radiology Diagnostic Radiology
DX: R18.8 Other ascites (principal); R14.0 Abdominal distension (gaseous); I48.91 Unspecified atrial fibrillation; K74.60 Unspecified cirrhosis of liver; I42.9 Cardiomyopathy, unspecified; I95.89 Other hypotension; Z85.3 Personal history of malignant neoplasm of breast; Z98.890 Other specified postprocedural states; Z95.0 Presence of cardiac pacemaker; Z79.899 Other long term (current) drug therapy
CPT/HCPCS: 49083; C1729; P9047